=== PATIENT | male | born 1960 | race Caucasian/White ===

== ENCOUNTER 2016-12-29 13:52 | Inpatient (IN) ==
[2016-12-29] MEDS ORDERED: KETOROLAC 30 MG/1 ML VIAL IV STA (14:31)
[2016-12-29] MEDS ORDERED: METOPROLOL TARTRATE 5 MG/5 ML VIAL IV STA (14:31)
--- NOTE | 2016-12-29 14:36 | Emergency Department Note ---
Shady Sharpe Manpreet, am scribing for, and in the presence of, Yana Iniguez DO 14: 34. IHira Debra, DO, personally performed the services described in this documentation, ascribed by Tyrese Caruso in my presence, and it is both accurate and complete 435 . Arrival - Arrival Chief Complaint: Extremity Problem Stated Complaint: swollen foot and leg (left) ED Nursing Triage Note: pain and swelling to left ankle onset x 5 days - pt denies injury Mode of Arrival: Ambulatory Source: Patient - History of Present Illness HPI Narrative: Pt is a 56 y/o male who presents to the ED with CC of swollen left ankle since 5 days ago. Pt denies any recent falls or injuries, SOB, and fever. Pt does not have a regular PCP. No other pains/complaints reported to ED. denies any sob, chest pain , nausea or vomiting. no fever or chills. Onset (ago): day(s) Consistency: constant Severity: moderate Severity scale (1-10): 3 Allergies/Adverse Reactions: Allergies Allergy/AdvReac Type Severity Reaction Status Date / Time codeine Allergy ITCHING Verified 01/07/16 08:47 ondansetron Allergy Agitated Verified 01/07/16 08:44 [From Zofran (as hydrochloride)] Penicillins Allergy RASH Verified 01/07/16 08:47 Erythromycin Base AdvReac Abdominal Verified 01/07/16 08:47 Pain ketorolac [From Toradol] AdvReac Weakness Verified 01/07/16 08:47 NSAIDS (Non-Steroidal AdvReac Abdominal Verified 01/07/16 08:47 Anti-Inflamma Pain Home Medications: Home Medications Medication Instructions Recorded Confirmed Type Aspirin Tab 325 mg PO DAILY 12/29/16 12/29/16 History Review of System - Review of System 12 point system: reviewed and no additional remarkable complaints except as stated - Review of System Constitutional: Absent: chills, diaphoresis, fever Respiratory: Absent: cough, respiratory distress Cardiovascular: Absent: chest pain, dyspnea on exertion Gastrointestinal: Absent: abdominal pain, nausea Musculoskeletal: Present: leg pain (left ankle pain and swelling). Absent: back pain, neck pain Neurological: Absent: headache, weakness, numbness, paresthesias Medical,Surgical,& Family Hx - Medical History Cardio: History of: Cardiac Dysrhythmia (SVT), Hypertension No history of: [place] Psychological: History of: Anxiety Disorders, Depression No history of: Bipolar Disorder, Schizophrenia Neurology: History of: TIA No history of: Cerebrovascular Accident, Seizures HEENT: History of: Ear Problem (Decreased hearing left ear) Endocrine: No history of: Diabetes Mellitus (IDDM), Diabetes Mellitus (NIDDM) Respiratory: No history of: Asthma, Bronchitis, COPD Renal: No history of: Renal Problems Gastrointestinal: History of: Gastrointestinal Bleed, Liver Problems, Pancreatitis, GI Problems (gastric ulcers) Musculoskeletal: History of: Back/Neck Problems (chronic back pain), Degenerative Disk Disease (back surg x2) Other: History of: Cancer (Skin Melanoma) - Surgical History Abdominal Surgeries: Surgical HX of: Abdominal Surgery, Appendectomy, Cholecystectomy Orthopedic Surgeries: Surgical HX of;: Spinal Surgery (back surgery 2) - Family History Family History: Reports;: Family Cancer (Father, G'mother), Family Diabetes ( Father), Family Heart Disease - Social History Smoking Status: Current every day smoker Frequency of Alcohol Use: None Type of Drug Use: None Exam Vital Signs: Vital Signs Temperature 98.1 F 12/29/16 15:53 Pulse Rate 142 H 12/29/16 15:53 Respiratory Rate 20 12/29/16 15:53 Blood Pressure 140/100 12/29/16 15:53 O2 Sat by Pulse Oximetry 95 12/29/16 14:05 - General General appearance: alert, in no apparent distress - Head Head exam: Present: atraumatic, normocephalic, normal inspection - Eye Eye exam: Present: normal appearance, PERRL, EOMI - ENT ENT exam: Present: normal exam, normal oropharynx, mucous membranes moist, TM's normal bilaterally - Neck Neck exam: Present: normal inspection, full ROM, trachea midline. Absent: tenderness, thyromegaly - Chest Chest inspection: Present: normal inspection, symmetric chest wall rise. Absent : tenderness - Respiratory Respiratory exam: Present: normal lung sounds bilaterally. Absent: rales, respiratory distress - Cardiovascular Cardiovascular exam: Present: normal rhythm, tachycardia, normal heart sounds. Absent: regular rate, murmur, rubs, gallop - Abdominal Exam Abdominal exam: Present: soft, normal bowel sounds. Absent: distention, diminished bowel sounds - Extremities Exam Extremities exam: Absent: normal inspection, tenderness - Expanded Lower Left Lower Lower leg exam: Present: full ROM, swelling, other (+1 Pitting Edema). Absent: normal inspection - Back Exam Back exam: Present: normal inspection, full ROM. Absent: tenderness - Neurological Exam Neurological exam: Present: alert, oriented X3, CN II-XII intact, reflexes normal - Psychiatric Psychiatric exam: Present: normal affect, normal mood - Skin Skin exam: Present: warm, dry, intact, normal color. Absent: pallor Course Course Narrative: spoke with hospitalist who will admit pt. pt is stable at this time. Results - Labs CBC & BMP: 12/29/16 14:25 12/29/16 14:25 Lab Results: I have reviewed the patients labs Labs: Laboratory Tests 12/29/16 14:25 WBC 12.7 H RBC 4.80 Hgb 14.8 Hct 43.5 [place] % (Auto) 12.9 H [place] # (Auto) 1.6 H Laboratory Tests 12/29/16 14:25 Sodium 144 Potassium 3.8 Chloride 110 H Carbon Dioxide 25 BUN/Creatinine Ratio 8.00 Calcium 8.1 L Alkaline Phosphatase 290 H Total Protein 5.6 L Albumin 2.7 L Albumin/Globulin Ratio 0.9 L Laboratory Tests 12/29/16 12/29/16 14:25 14:25 INR 1.2 PT Patient/Control Mix 12.5 Circ Anticoag PTT 28.7 Total Creatine Kinase 177 CK-MB (CK-2) 3.8 H Troponin I < 0.015 - Diagnostic Findings Procedure: CT - chest: report reviewed by me (CT Chest PE study: 1. Acute pulmonary emboli as described. 2. Scattered 2 to 3 mm pleural-based nodular densities in both lungs are almost certainly benign. Prior granulomatous disease. 3. Prior abdominal surgery with Arsenio-en-Y and indwelling stent from the biliary system into the afferent limb. 4. Hepatic steatosis.) Disposition Clinical Impression: Deep vein thrombosis of lower extremity, Pulmonary embolism Case discussed with: patient Disposition: Still a Patient Condition: Stable Time of Disposition: 15:51
[2016-12-29] MEDS ORDERED: KETOROLAC 30 MG/1 ML VIAL ONE (14:40)
[2016-12-29] MEDS ORDERED: METOPROLOL TARTRATE 5 MG/5 ML VIAL IV ONE (14:40)
[2016-12-29 14:50] LABS: Basophils # 0.1 10*3/uL (0.0-0.2); Basophils % 0.7 % (0.0-0.8); Eosinophils # 0.6 10*3/uL (0.0-0.87); Eosinophils % 4.7 % (0.00-10.9); Hematocrit 43.5 VOL% (42.0-52.0); Hemoglobin 14.8 GM/DL (14.0-18.0); Immature Granulocytes Absolute 0.13 #; Lymphocytes # 2.8 10*3/uL (1.4-4.0); Mean Corpuscular Hemoglobin 31 PG (27-34); Mean Corpuscular Volume 90.6 FL (87-102); Mean Platelet Volume 10.5 FL (9.6-12.0); Monocytes # 1.6 10*3/uL (0.11-0.8); Monocytes % 12.9 % (1.7-12.7); Neutrophils # 7.4 10*3/uL (1.4-7.4); Neutrophils % 58.7 % (38.7-73.9); Platelet Count 284 T/CUMM (130-400); Red Cell Distribution Width 15.2 % (9.3-17.3); White Blood Count 12.7 T/CUMM (4-12)
[2016-12-29 15:11] LABS: Alanine Aminotransferase 41 U/L (16-61); Albumin 2.7 G/DL (3.4-5.0); Alkaline Phosphatase 290 U/L (45-117); Aspartate Amino Transferase 35 U/L (0-37); Bilirubin,Total < 0.39 MG/DL (0.2-1.0); Blood Urea Nitrogen 8 MG/DL (7-18); Calcium 8.1 MG/DL (8.5-10.1); Glucose 98 MG/DL (74-106); Osmolality,Calculated 283.8 MOS/KG (273-304); Potassium 3.8 MMOL/L (3.5-5.1); Sodium 144 MMOL/L (136-145); Total Protein 5.6 G/DL (6.4-8.3)
--- NOTE | 2016-12-29 15:12 | Ultrasound Report ---
History: Left lower extremity swelling and pain Date: 12/29/2016 Study: Left lower extremity color-flow venous Doppler study Comparison exam: No previous Color Doppler, wave form analysis, and compression analysis of the deep veins of the left lower extremity from the common femoral vein level through the popliteal vein level was performed. There is occluding echogenic material of a noncompressible nature in the distal left superficial femoral vein and left popliteal vein compatible with acute DVT. Preliminary verbal report was given to nurse Puente in the emergency room at 3:06 PM. Critical test result. Ultrasound images were captured and archived Impression: Acute DVT left lower extremity PROCEDURE INTERPRETED AT [facility] DEPARTMENT OF RADIOLOGY Final Report Signed by: Dr. Chiquis Hess
[2016-12-29 15:25] LABS: INR 1.2; PT Patient Result 12.5 SECS; Partial Thromboplastin Time 28.7 SECS (0-40)
[2016-12-29 15:32] LABS: Troponin I Only < 0.015 NG/ML (0.00-0.045)
--- NOTE | 2016-12-29 15:41 | CT Report ---
CT chest PE study Indication: Dyspnea. Tachycardia. CT CHEST WITH CONTRAST, PE PROTOCOL DLP: 303 mGy*cm. One or more of the following dose reduction techniques was used: Automated exposure control, adjustment of the mA and/or kV according the patient size, or use of iterative reconstruction techniques. Comparison: 01/05/2016 Technique: Axial CT images of the chest were obtained during the pulmonary arterial phase of contrast injection. Coronal reconstructions were provided. Omnipaque 350, 80 cc. Findings: Filling defects are present within the branch points of the right main pulmonary artery, right middle lobe and right lower lobar branches, left main pulmonary artery and both left upper and left lower lobe segments. Main pulmonary artery is clear centrally. Main pulmonary artery is normal in size. Heart size is normal. RV/LV diameter ratio 0.8. Coronary artery calcifications are present. Aortic arch is unremarkable without dissection or aneurysm. No mediastinal, axillary or hilar lymphadenopathy. Calcified granuloma right lung base laterally. There are innumerable pleural-based nodular densities, most 2 to 3 mm diameter bilaterally. These are almost certainly benign. No confluent mass, soft tissue pulmonary nodule or infiltrate is shown. Pleural spaces are clear. No destructive bone lesions. Views of the upper abdomen show diffusely hypodense liver parenchyma and pneumobilia and a indwelling biliary catheter extending into what appears to be the afferent limb of a prior Arsenio-en-Y. Surgical jocelyn are present at the stomach and the first segment of the duodenum is absent. Impression: 1. Acute pulmonary emboli as described. 2. Scattered 2 to 3 mm pleural-based nodular densities in both lungs are almost certainly benign. Prior granulomatous disease. 3. Prior abdominal surgery with Arsenio-en-Y and indwelling stent from the biliary system into the afferent limb. 4. Hepatic steatosis. Comment: Critical test result discussed with Dr. Iniguez today at 1535 hours. PROCEDURE INTERPRETED AT [facility] DEPARTMENT OF RADIOLOGY Final Report Signed by: Law Cavanaugh M.D.
[2016-12-29] MEDS ORDERED: ENOXAPARIN 80 MG/0.8 ML SYRINGE SUBCUT STA (15:42)
--- NOTE | 2016-12-29 15:43 | XRay Report ---
History: Shortness of breath Date: 12/29/2016 Study: Chest x-ray AP portable Comparison exam: January 10, 2016 The cardiac silhouette is not enlarged. There is no mediastinal mass. The pulmonary vasculature is upper normal. There is no pleural effusion. The lungs are well-expanded. There is no confluent infiltrate. There is no gross pleural effusion. Osseous structures are unchanged. Impression: No definite acute process PROCEDURE INTERPRETED AT [facility] DEPARTMENT OF RADIOLOGY Final Report Signed by: Dr. Chiquis Hess
[2016-12-29] MEDS ORDERED: ENOXAPARIN 80 MG/0.8 ML SYRINGE SUBCUT ONE (15:44)
[2016-12-29] MEDS ORDERED: SODIUM CHLORIDE 0.9% 500 ML IV STA (17:09)
--- NOTE | 2016-12-29 18:08 | Hospitalist History & Physical ---
Assessment and Plan (1) Pulmonary embolism Status: Acute Assessment and plan: Admit to telemetry. Cardiac monitoring. Supplemental O2 as needed. Start patient on Eliquis. Check labs in am (BMP/CBC, PT/INR) Current Visit: Yes (2) Hypertension Status: Acute Assessment and plan: pt hypertensive. Order prn antihypertensive agents and continue to monitor. Current Visit: No (3) Chronic back pain Status: Chronic Current Visit: No (4) Chronic pain syndrome Problem details: The patient with multiple pain complaints were decades Status : Chronic Current Visit: No (5) History of pancreatitis Status: Chronic Current Visit: No History of Present Illness Chief complaint: swollen left foot/leg History of present illness: Mr. Aguilar is a 56 year old white male with a history of htn, TIA, GI bleeding, pancreatitis, degenerative disk disease, and skin cancer that presented to the ED for complaints of a swollen left ankle. Pt. states that he has been experiencing pain to the left ankle for the last 5 days, but it worsened overnight and was accompanied by calf pain. Pt. denies any recent injury or trauma to the leg. Pt. uses a cane to ambulate and states that he has had difficulty over the last couple of days ambulating. Pt. denies chest pain but complains of some shortness of breath at rest and with exertion. Pt. did report some mild nausea and fever but no vomiting and chills. On examination in the ED , pt was found to be hypertensive and tachycardiac. Pt's left leg is edematous and warm to touch. Pt had a CT performed which revealed an acute pulmonary emboli. Pt was given 80 mg of Lovenox in the ED. Pt will be admitted to the hospitalist service for further evaluation and treatment. Home Medications Medication Instructions Recorded Confirmed Type Aspirin Tab 325 mg PO DAILY 12/29/16 12/29/16 History Allergies Allergy/AdvReac Type Severity Reaction Status Date / Time codeine Allergy ITCHING Verified 01/07/16 08:47 ondansetron Allergy Agitated Verified 01/07/16 08:44 [From Zofran (as hydrochloride)] Penicillins Allergy RASH Verified 01/07/16 08:47 Erythromycin Base AdvReac Abdominal Verified 01/07/16 08:47 Pain ketorolac [From Toradol] AdvReac Weakness Verified 12/29/16 16:06 NSAIDS (Non-Steroidal AdvReac Abdominal Verified 01/07/16 08:47 Anti-Inflamma Pain Medical,Surgical,& Family Hx - Medical History Cardio: History of: Cardiac Dysrhythmia (SVT), Hypertension No history of: [place] Psychological: History of: Anxiety Disorders, Depression No history of: Bipolar Disorder, Schizophrenia Neurology: History of: TIA No history of: Cerebrovascular Accident, Seizures HEENT: History of: Ear Problem (Decreased hearing left ear) Endocrine: No history of: Diabetes Mellitus (IDDM), Diabetes Mellitus (NIDDM) Respiratory: No history of: Asthma, Bronchitis, COPD Renal: No history of: Renal Problems Gastrointestinal: History of: Gastrointestinal Bleed, Liver Problems, Pancreatitis, GI Problems (gastric ulcers) Musculoskeletal: History of: Back/Neck Problems (chronic back pain), Degenerative Disk Disease (back surg x2) Other: History of: Cancer (Skin Melanoma) - Surgical History Abdominal Surgeries: Surgical HX of: Abdominal Surgery, Appendectomy, Cholecystectomy Orthopedic Surgeries: Surgical HX of;: Spinal Surgery (back surgery 2) - Family History Family History: Reports;: Family Cancer (Father, G'mother), Family Diabetes ( Father), Family Heart Disease - Social History Smoking Status: Current every day smoker Have you smoked in the last 12 months: Yes Frequency of Alcohol Use: None Type of Drug Use: None Marital Status: Single Lives With:: Alone Functional capacity: uses cane/walker - Constitutional Constitutional: Present: fever(s), weakness. Absent: chills - EENT Eyes: Absent: blurry vision Ears: Absent: decreased hearing Nose, mouth and throat: Absent: dysphagia, headache(s) - Cardiovascular Cardiovascular: Present: dyspnea on exertion, edema. Absent: chest pain at rest - Respiratory Respiratory: Present: dyspnea on exertion. Absent: wheezing - Gastrointestinal Gastrointestinal: Present: nausea. Absent: abdominal pain, vomiting - Genitourinary Genitourinary: Absent: difficulty urinating, hematuria - Musculoskeletal Musculoskeletal: Present: back pain - Neurological Neurological: Absent: confusion, dizziness - Hematologic/Lymphatic Hematologic/Lymphatic: Present: easy bruising Exam - Constitutional Vitals: Period Temp Pulse Resp BP Sys/Victor Pulse Ox Last 24 Hr 98.1 F-98.1 F 142-142 20-20 140-140/100-100 95 General appearance: normal weight, no acute distress - Head Head exam: Present: normal inspection, atraumatic - Eye Eye exam: Present: EOMI. Absent: scleral icterus Pupils: Present: ADEEL. Absent: fixed - Respiratory Respiratory exam: Present: other (coarse) - Cardiovascular Cardiovascular exam: Present: tachycardia. Absent: JVD - GI/Abdominal GI/Abdominal exam: Present: normal bowel sounds, soft. Absent: tenderness - Extremities Exam Extremities exam: Present: normal capillary refill, calf tenderness (left leg), edema - Expanded Left Lower Knee exam: Present: normal inspection Lower leg exam: Present: swelling, tenderness Foot/Toe exam: Present: full ROM, swelling, tenderness - Neurological Exam Neurological exam: Present: alert, oriented X3 - Psychiatric Psychiatric exam: Present: normal affect, normal mood - Skin Skin exam: Present: normal color, warm, dry Results - Labs CBC & BMP: 12/29/16 14:25 12/29/16 14:25 Lab Results: I have reviewed the past 24 hour labs
--- NOTE | 2016-12-29 18:59 | EKG Report ---
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
[2016-12-29] MEDS: SODIUM CHLORIDE 0.9% 1,000 ML IV SCH (19:12)
[2016-12-29] MEDS ORDERED: ACETAMINOPHEN 325 MG TABLET PO PRN (19:12)
[2016-12-29] MEDS: METOPROLOL TARTRATE 5 MG/5 ML VIAL IV SCH (21:54)
[2016-12-29] MEDS: RIVAROXABAN 15 MG TABLET PO SCH (21:55)
[2016-12-30 01:13] LABS: Apearance,Urine CLEAR (Clear); Bilirubin,Urine Negative (Negative); Blood, Urine Negative (Negative); Glucose,Urine (UA) Negative (Negative); Ketones,Urine 5 mg/dL (Negative); Mucus,Urine Occasional /LPF (Occasional); Nitrite,Urine Negative (Negative); Protein,Urine Negative; RBC,Urine <1 /HPF (0-4); Urine Color Yellow (Yellow); Urine Specific Gravity 1.043 (1.001-1.035); Urine Urobilinogen < 2.0 EU/DL (0.2-1.0); WBC,Urine <1 /HPF (0-6)
[2016-12-30 01:19] LABS: Barbiturates Screen,Urine Negative (Negative); Benzodiazepines Screen,Urine Positive (Negative); Cannabinoid Screen,Urine Negative (Negative); Opiate Screen,Urine Negative (Negative); Phencyclidine Screen,Urine Negative (Negative)
[2016-12-30] MEDS: SODIUM CHLORIDE 0.9% 1,000 ML IV SCH ×2 (02:20→02:32)
[2016-12-30] MEDS: METOPROLOL TARTRATE 5 MG/5 ML VIAL IV SCH ×3 (02:30→14:31)
[2016-12-30 06:16] LABS: Basophils # 0.1 10*3/uL (0.0-0.2); Basophils % 1.1 % (0.0-0.8); Eosinophils # 1.1 10*3/uL (0.0-0.87); Eosinophils % 10.9 % (0.00-10.9); Hematocrit 38.3 VOL% (42.0-52.0); Hemoglobin 12.9 GM/DL (14.0-18.0); Immature Granulocytes % 0.8 %; Immature Granulocytes Absolute 0.08 #; Lymphocytes % 29.9 % (21.2-54.2); Mean Corpuscular HGB Conc 33.7 GM/DL (32-36); Mean Corpuscular Hemoglobin 31 PG (27-34); Mean Corpuscular Volume 91.4 FL (87-102); Mean Platelet Volume 10.4 FL (9.6-12.0); Monocytes # 1.2 10*3/uL (0.11-0.8); Monocytes % 11.7 % (1.7-12.7); Neutrophils # 4.6 10*3/uL (1.4-7.4); Neutrophils % 45.6 % (38.7-73.9); Platelet Count 259 T/CUMM (130-400); Red Blood Count 4.19 MC/CUMM (3.8-5.5); Red Cell Distribution Width 15.6 % (9.3-17.3); White Blood Count 10.1 T/CUMM (4-12)
[2016-12-30 06:22] LABS: INR 1.5; PT Patient Result 16.7 SECS
[2016-12-30 06:39] LABS: Calcium 7.6 MG/DL (8.5-10.1); Osmolality,Calculated 285.6 MOS/KG (273-304); Risk Ratio 3.38; Thyroid Stimulating Hormone 0.583 uIU/ml (0.358-3.74); VLDL CHOLESTEROL 11.6 MG/DL
[2016-12-30] MEDS ORDERED: ENOXAPARIN 100 MG/ML SYRINGE SUBCUT SCH (09:00)
[2016-12-30] MEDS ORDERED: PANTOPRAZOLE 40 MG TABLET PO SCH (09:00)
[2016-12-30] MEDS: RIVAROXABAN 15 MG TABLET PO SCH (10:18)
--- NOTE | 2016-12-30 11:05 | Discharge Summary ---
Hospital Course - Hospital Course Hospital Course: This hospitalization included patient admitted due to pulmonary embolus found after a 5 day history of left leg swelling and pain. On evaluation in the emergency room, the CT scan showed evidence of acute pulmonary embolus. He was started on full dose Lovenox. Moreover, the patient transitioned to Xarelto. During this hospitalization he had no further leg pain. Within 24 hours the left leg swelling was completely resolved. No fevers or chills. No shortness of breath or chest pain. He is now been transitioned to Xarelto. He has been hemodynamically stable. No other acute changes. He is now prepared for discharge will follow up with Dr. Mix as his primary provider. - Time spent with patient Time with patient DS: Greater than 30 minutes (35 minutes due to extent of discharge instructions.) Diagnosis - Discharge Diagnosis (1) DVT (deep venous thrombosis) Status: Acute (2) Hypertension Status: Chronic (3) Deep vein thrombosis of lower extremity Status: Acute (4) Pulmonary embolism Status: Acute Discharge Plan - Discharge Data Disposition: Disch To Home/Self Care Condition at Discharge: Stable Discharge Diet: advance to your usual diet Activity: resume usual activities as tolerated Hygiene: no restrictions Weight Bearing at Discharge: full weight bearing Driving: no restrictions Contact your physician if you experience:: fever over 101, Shortness of breath, Bleeding - Discharge Medications New RX: Metoprolol Succinate Xl [Toprol Xl] 25 mg PO DAILY #30 tablet RX: Pantoprazole Tab [Protonix Tab] 40 mg PO DAILY #30 tablet RX: Rivaroxaban [Xarelto] 15 mg PO BID W/MEALS #42 tablet Rivaroxaban [Xarelto] 20 mg PO DAILY W/BREAKFAST #30 tablet - Follow Up or Referral - Forms/Instructions Additional Discharge Instructions: Follow with Dr. Mele Mix as scheduled. Continue Xarelto as prescribed for pulmonary embolus. Exam - Constitutional Vitals: Period Temp Pulse Resp BP Sys/Victor Pulse Ox Last 24 Hr 97 F-98.7 F 82-142 18-20 128-166/82-102 92-95 General appearance: normal weight - Head Head exam: Present: normal inspection - Eye Eye exam: Present: EOMI - ENT ENT exam: Present: normal exam - Neck Neck exam: Present: normal inspection - Respiratory Respiratory exam: Present: clear to auscultation bilaterally - Cardiovascular Cardiovascular exam: Present: regular rate and rhythm - GI/Abdominal GI/Abdominal exam: Present: normal bowel sounds - Extremities Exam Extremities exam: Present: normal inspection - Back Exam Back exam: Present: normal inspection - Neurological Exam Neurological exam: Present: alert, oriented X3, CN II-XII intact - Psychiatric Psychiatric exam: Present: normal affect, normal mood - Skin Skin exam: Present: normal color, dry Discharge Results Procedures and tests throughout hospitalization: Pending Orders 12/31/16 04:00 Basic Metabolic Panel IN AM Comp Blood Count Auto Diff IN AM Labs on day of discharge: Labs from last 24 hours 12/30/16 12/30/16 12/30/16 05:44 05:42 05:42 WBC RBC Hgb Hct MCV MCH MCHC RDW Plt Count MPV Neut % (Auto) Lymph % (Auto) [place] % (Auto) Eos % (Auto) Baso % (Auto) Neut # (Auto) Lymph # (Auto) [place] # (Auto) Eos # (Auto) Baso # (Auto) Immature Gran % Nucleated RBC % Immature Gran # Nucleated RBCs # INR 1.5 PT Patient/Control Mix 16.7 D Circ Anticoag PTT Sodium Potassium Chloride Carbon Dioxide Anion Gap BUN Creatinine GFR Calculation BUN/Creatinine Ratio Glucose Hemoglobin A1c 4.6 Calculated Osmolality Calcium Total Bilirubin AST ALT Alkaline Phosphatase Total Creatine Kinase CK-MB (CK-2) Troponin I B-Natriuretic Peptide Total Protein Albumin Globulin Albumin/Globulin Ratio Triglycerides Cholesterol LDL Cholesterol VLDL Cholesterol HDL Cholesterol Heart Disease Risk Ratio Free T4 1.19 TSH 3rd Generation Urine Color Urine Appearance Urine pH Ur Specific [place] Urine Protein Urine Glucose (UA) Urine Ketones Urine Blood Urine Nitrate Urine Bilirubin Urine Urobilinogen Urine Leukocytes Urine RBC Urine WBC Urine Mucus Ur Culture Indicated? Urine Opiates Screen Ur Barbiturates Screen Ur Phencyclidine Scrn U Amphetamine/Methamph U Benzodiazepines Scrn U Cocaine Metab Screen U Cannabinoids Screen 12/30/16 12/30/16 12/30/16 05:42 05:42 00:30 WBC 10.1 RBC 4.19 Hgb 12.9 L Hct 38.3 L MCV 91.4 MCH 31 MCHC 33.7 RDW 15.6 Plt Count 259 MPV 10.4 Neut % (Auto) 45.6 Lymph % (Auto) 29.9 [place] % (Auto) 11.7 Eos % (Auto) 10.9 Baso % (Auto) 1.1 H Neut # (Auto) 4.6 Lymph # (Auto) 3.0 [place] # (Auto) 1.2 H Eos # (Auto) 1.1 H Baso # (Auto) 0.1 Immature Gran % 0.8 Nucleated RBC % 0.0 Immature Gran # 0.08 Nucleated RBCs # 0.00 INR PT Patient/Control Mix Circ Anticoag PTT Sodium 146 H Potassium 4.0 Chloride 111 H Carbon Dioxide 28 Anion Gap 11.0 BUN 7 Creatinine 0.60 L GFR Calculation 127 BUN/Creatinine Ratio 11.00 Glucose 60 L Hemoglobin A1c Calculated Osmolality 285.6 Calcium 7.6 L Total Bilirubin AST ALT Alkaline Phosphatase Total Creatine Kinase CK-MB (CK-2) Troponin I B-Natriuretic Peptide Total Protein Albumin Globulin Albumin/Globulin Ratio Triglycerides 58 Cholesterol 54 LDL Cholesterol 35.0 VLDL Cholesterol 11.6 HDL Cholesterol 16 L Heart Disease Risk Ratio 3.38 Free T4 TSH 3rd Generation 0.583 Urine Color Urine Appearance Urine pH Ur Specific [place] Urine Protein Urine Glucose (UA) Urine Ketones Urine Blood Urine Nitrate Urine Bilirubin Urine Urobilinogen Urine Leukocytes Urine RBC Urine WBC Urine Mucus Ur Culture Indicated? Urine Opiates Screen Negative Ur Barbiturates Screen Negative Ur Phencyclidine Scrn Negative U Amphetamine/Methamph Negative U Benzodiazepines Scrn Positive H U Cocaine Metab Screen Negative U Cannabinoids Screen Negative 12/30/16 12/29/16 12/29/16 00:30 14:25 14:25 WBC RBC Hgb Hct MCV MCH MCHC RDW Plt Count MPV Neut % (Auto) Lymph % (Auto) [place] % (Auto) Eos % (Auto) Baso % (Auto) Neut # (Auto) Lymph # (Auto) [place] # (Auto) Eos # (Auto) Baso # (Auto) Immature Gran % Nucleated RBC % Immature Gran # Nucleated RBCs # INR PT Patient/Control Mix Circ Anticoag PTT Sodium Potassium Chloride Carbon Dioxide Anion Gap BUN Creatinine GFR Calculation BUN/Creatinine Ratio Glucose Hemoglobin A1c Calculated Osmolality Calcium Total Bilirubin AST ALT Alkaline Phosphatase Total Creatine Kinase 177 CK-MB (CK-2) 3.8 H Troponin I < 0.015 B-Natriuretic Peptide 8 Total Protein Albumin Globulin Albumin/Globulin Ratio Triglycerides Cholesterol LDL Cholesterol VLDL Cholesterol HDL Cholesterol Heart Disease Risk Ratio Free T4 TSH 3rd Generation Urine Color Yellow Urine Appearance Clear Urine pH 6.0 Ur Specific [place] 1.043 H Urine Protein Negative Urine Glucose (UA) Negative Urine Ketones 5 Urine Blood Negative Urine Nitrate Negative Urine Bilirubin Negative Urine Urobilinogen < 2.0 H Urine Leukocytes Negative Urine RBC <1 Urine WBC <1 Urine Mucus Occasional Ur Culture Indicated? Not indicated Urine Opiates Screen Ur Barbiturates Screen Ur Phencyclidine Scrn U Amphetamine/Methamph U Benzodiazepines Scrn U Cocaine Metab Screen U Cannabinoids Screen 12/29/16 12/29/16 12/29/16 14:25 14:25 14:25 WBC 12.7 H RBC 4.80 Hgb 14.8 Hct 43.5 MCV 90.6 MCH 31 MCHC 34.0 RDW 15.2 Plt Count 284 MPV 10.5 Neut % (Auto) 58.7 Lymph % (Auto) 22.0 [place] % (Auto) 12.9 H Eos % (Auto) 4.7 Baso % (Auto) 0.7 Neut # (Auto) 7.4 Lymph # (Auto) 2.8 [place] # (Auto) 1.6 H Eos # (Auto) 0.6 Baso # (Auto) 0.1 Immature Gran % 1.0 Nucleated RBC % 0.0 Immature Gran # 0.13 Nucleated RBCs # 0.00 INR 1.2 PT Patient/Control Mix 12.5 Circ Anticoag PTT 28.7 Sodium 144 Potassium 3.8 Chloride 110 H Carbon Dioxide 25 Anion Gap 12.8 BUN 8 Creatinine 0.90 GFR Calculation 106 BUN/Creatinine Ratio 8.00 Glucose 98 Hemoglobin A1c Calculated Osmolality 283.8 Calcium 8.1 L Total Bilirubin < 0.39 AST 35 ALT 41 Alkaline Phosphatase 290 H Total Creatine Kinase CK-MB (CK-2) Troponin I B-Natriuretic Peptide Total Protein 5.6 L Albumin 2.7 L Globulin 2.9 Albumin/Globulin Ratio 0.9 L Triglycerides Cholesterol LDL Cholesterol VLDL Cholesterol HDL Cholesterol Heart Disease Risk Ratio Free T4 TSH 3rd Generation Urine Color Urine Appearance Urine pH Ur Specific [place] Urine Protein Urine Glucose (UA) Urine Ketones Urine Blood Urine Nitrate Urine Bilirubin Urine Urobilinogen Urine Leukocytes Urine RBC Urine WBC Urine Mucus Ur Culture Indicated? Urine Opiates Screen Ur Barbiturates Screen Ur Phencyclidine Scrn U Amphetamine/Methamph U Benzodiazepines Scrn U Cocaine Metab Screen U Cannabinoids Screen DS: Provider Date of admission: 12/29/16 16:09 Primary care physician: . No PCP Attending physician on admission: Pascual Boone Jr., MD Consults: 12/29/16 19:12 Consult to Case Mgmt/Social Srvs [CONS] Routine Reason for Case Mgmt/Social Srvs: Other Consult Comment: help finding PCP in his area Discharging clinician: Pascual Boone Jr., MD
[2016-12-30 12:32] VITALS: BP 173/104
[2016-12-30] MEDS ORDERED: hydrALAZINE 20 MG/1 ML VIAL IV PRN (12:33)
[2016-12-30] MEDS ORDERED: METOPROLOL SUCCINATE XL 50 MG TABLET PO SCH (13:00)
== END 2016-12-30 15:28 | disposition home or self-care (01) | DRG 134 ==
LOC: N.ED 13:52 → N.EDINP 16:09 → N.TELEN 18:22 → UNDODISIN 12-30 14:27
PROVIDERS: ADMIT Internal Medicine Nephrology; ATTEND Internal Medicine Nephrology

== ENCOUNTER 2017-07-01 09:21 | Inpatient (IN) ==
[2017-07-01] MEDS ORDERED: ONDANSETRON 4 MG/2 ML VIAL ONE (09:42)
[2017-07-01] MEDS ORDERED: DILTIAZEM 100 MG VIAL.ADD IV ONE ×2 (09:43→18:29)
[2017-07-01] MEDS ORDERED: SODIUM CHLORIDE 0.9% 2,000 ML IV STA (09:44)
[2017-07-01 10:16] LABS: Basophils # 0.1 10*3/uL (0.0-0.2); Basophils % 0.7 % (0.0-0.8); Eosinophils % 0.1 % (0.00-10.9); Hematocrit 50.9 VOL% (42.0-52.0); Hemoglobin 16.7 GM/DL (14.0-18.0); Immature Granulocytes % 1.3 %; Immature Granulocytes Absolute 0.09 #; Lymphocytes # 1.6 10*3/uL (1.4-4.0); Lymphocytes % 22.5 % (21.2-54.2); Mean Corpuscular HGB Conc 32.8 GM/DL (32-36); Mean Corpuscular Hemoglobin 31 PG (27-34); Mean Corpuscular Volume 95.5 FL (87-102); Mean Platelet Volume 10.5 FL (9.6-12.0); Monocytes # 0.9 10*3/uL (0.11-0.8); Monocytes % 13.3 % (1.7-12.7); Neutrophils # 4.4 10*3/uL (1.4-7.4); Neutrophils % 62.1 % (38.7-73.9); Platelet Count 299 T/CUMM (130-400); Red Blood Count 5.33 MC/CUMM (3.8-5.5); Red Cell Distribution Width 15.7 % (9.3-17.3); White Blood Count 7.1 T/CUMM (4-12)
[2017-07-01 10:52] LABS: Alanine Aminotransferase 67 U/L (16-61); Albumin 2.4 G/DL (3.4-5.0); Alkaline Phosphatase 231 U/L (45-117); Amylase 14 U/L (25-115); Aspartate Amino Transferase 102 U/L (0-37); Bilirubin,Total < 0.39 MG/DL (0.2-1.0); Blood Urea Nitrogen 17 MG/DL (7-18); Calcium 7.5 MG/DL (8.5-10.1); Glucose 95 MG/DL (74-106); Magnesium 1.8 MG/DL (1.8-2.4); Potassium 4.1 MMOL/L (3.5-5.1); Sodium 136 MMOL/L (136-145); Total Protein 5.8 G/DL (6.4-8.3); Troponin I Only 0.018 NG/ML (0.00-0.045)
[2017-07-01 11:11] LABS: Lactic Acid 3.4 MMOL/L (0.4-2.0)
[2017-07-01] MEDS ORDERED: DILTIAZEM 50 MG/10 ML VIAL IV STA (11:14)
[2017-07-01] MEDS ORDERED: ONDANSETRON 4 MG/2 ML VIAL IV STA (11:15)
[2017-07-01] MEDS: DILTIAZEM INJ 100 MG in SODIUM CHLORIDE 0.9% 100 ML IV SCH (11:18)
[2017-07-01] MEDS ORDERED: METOPROLOL TARTRATE 5 MG/5 ML VIAL IV ONE (13:56)
[2017-07-01] MEDS ORDERED: PROMETHAZINE 25 MG/1 ML VIAL ONE (14:10)
[2017-07-01] MEDS ORDERED: MORPHINE 2 MG/1 ML SYRINGE ONE ×2 (14:10→14:13)
[2017-07-01] MEDS ORDERED: METOPROLOL TARTRATE 5 MG/5 ML VIAL IV STA (14:23)
[2017-07-01] MEDS ORDERED: MORPHINE 2 MG/1 ML SYRINGE IV STA (14:23)
[2017-07-01] MEDS ORDERED: PROMETHAZINE 25 MG/1 ML VIAL IM STA (14:25)
[2017-07-01] MEDS: METOPROLOL TARTRATE 25 MG TABLET PO SCH (20:48)
[2017-07-01] MEDS: ACETAMINOPHEN 325 MG TABLET PO PRN (20:48)
[2017-07-01] MEDS: SODIUM CHLORIDE 0.9% 1,000 ML IV SCH (20:51)
[2017-07-01] MEDS: PROMETHAZINE 25 MG/1 ML VIAL IM PRN (23:52)
[2017-07-01] MEDS: MORPHINE 2 MG/1 ML SYRINGE IV PRN (23:53)
[2017-07-02] MEDS: PROMETHAZINE 25 MG/1 ML VIAL IM PRN (05:36)
[2017-07-02] MEDS: MORPHINE 2 MG/1 ML SYRINGE IV PRN (05:36)
[2017-07-02] MEDS: DILTIAZEM INJ 100 MG in SODIUM CHLORIDE 0.9% 100 ML IV SCH ×2 (05:45→17:56)
[2017-07-02 05:53] LABS: Basophils % 0.8 % (0.0-0.8); Eosinophils % 0.4 % (0.00-10.9); Hematocrit 39.1 VOL% (42.0-52.0); Hemoglobin 12.8 GM/DL (14.0-18.0); Immature Granulocytes % 1.3 %; Immature Granulocytes Absolute 0.07 #; Lymphocytes # 2.1 10*3/uL (1.4-4.0); Lymphocytes % 38.8 % (21.2-54.2); Mean Corpuscular HGB Conc 32.7 GM/DL (32-36); Mean Corpuscular Hemoglobin 31 PG (27-34); Mean Corpuscular Volume 95.6 FL (87-102); Mean Platelet Volume 10.5 FL (9.6-12.0); Monocytes # 0.6 10*3/uL (0.11-0.8); Monocytes % 10.4 % (1.7-12.7); Neutrophils # 2.6 10*3/uL (1.4-7.4); Neutrophils % 48.3 % (38.7-73.9); Platelet Count 172 T/CUMM (130-400); Red Blood Count 4.09 MC/CUMM (3.8-5.5); Red Cell Distribution Width 15.9 % (9.3-17.3); White Blood Count 5.3 T/CUMM (4-12)
[2017-07-02 06:22] LABS: Albumin 1.7 G/DL (3.4-5.0); Bilirubin,Direct 0.13 MG/DL (0.0-0.20); Bilirubin,Indirect 0.4 MG/DL (0.0-1.0); Bilirubin,Total 0.5 MG/DL (0.2-1.0); Total Protein 3.8 G/DL (6.4-8.3)
[2017-07-02] MEDS: SODIUM CHLORIDE 0.9% 1,000 ML IV SCH ×2 (06:35→20:57)
[2017-07-02 06:37] LABS: Anisocytosis 1+; Band Neutrophils 5 % (0-10); Lymphocytes 27 % (20-55); Myelocytes 1 %; Platelet Estimate Normal; Segmented Neutrophils 62 % (50-85); Total Cells Counted 100
[2017-07-02 06:42] LABS: Calcium 6.8 MG/DL (8.5-10.1); Osmolality,Calculated 272.7 MOS/KG (273-304); Potassium 3.8 MMOL/L (3.5-5.1)
[2017-07-02] MEDS: PANTOPRAZOLE 40 MG TABLET PO SCH (08:28)
[2017-07-02] MEDS: METOPROLOL TARTRATE 25 MG TABLET PO SCH ×2 (08:28→20:57)
[2017-07-02] MEDS ORDERED: METOPROLOL TARTRATE 25 MG TABLET PO SCH (09:00)
[2017-07-02] MEDS: LEVOFLOXACIN INJ 750 MG in PREMIX 1 EACH IV SCH (15:57)
[2017-07-02] MEDS: metroNIDAZOLE INJ 500 MG in PREMIX 1 EACH IV SCH ×2 (17:54→23:49)
[2017-07-03 05:20] LABS: Basophils % 0.5 % (0.0-0.8); Hematocrit 34.8 VOL% (42.0-52.0); Hemoglobin 11.9 GM/DL (14.0-18.0); Immature Granulocytes % 1.6 %; Immature Granulocytes Absolute 0.06 #; Lymphocytes # 1.7 10*3/uL (1.4-4.0); Lymphocytes % 44.1 % (21.2-54.2); Mean Corpuscular HGB Conc 34.2 GM/DL (32-36); Mean Corpuscular Hemoglobin 32 PG (27-34); Mean Corpuscular Volume 92.6 FL (87-102); Mean Platelet Volume 10.9 FL (9.6-12.0); Monocytes # 0.4 10*3/uL (0.11-0.8); Monocytes % 9.9 % (1.7-12.7); Neutrophils # 1.6 10*3/uL (1.4-7.4); Neutrophils % 42.9 % (38.7-73.9); Platelet Count 145 T/CUMM (130-400); Red Blood Count 3.76 MC/CUMM (3.8-5.5); Red Cell Distribution Width 15.7 % (9.3-17.3); White Blood Count 3.8 T/CUMM (4-12)
[2017-07-03 05:45] LABS: Calcium 6.1 MG/DL (8.5-10.1); Osmolality,Calculated 275.4 MOS/KG (273-304); Potassium 3.7 MMOL/L (3.5-5.1)
[2017-07-03 05:54] LABS: Band Neutrophils 1 % (0-10); Giant Platelets Few; Hypochromasia 1+; Lymphocytes 31 % (20-55); Platelet Estimate Normal; Segmented Neutrophils 60 % (50-85); Total Cells Counted 100
[2017-07-03] MEDS: metroNIDAZOLE INJ 500 MG in PREMIX 1 EACH IV SCH ×3 (06:17→22:38)
[2017-07-03] MEDS: PROMETHAZINE 25 MG/1 ML VIAL IM PRN ×2 (09:55→22:38)
[2017-07-03] MEDS: RIVAROXABAN 20 MG TABLET PO SCH (09:57)
[2017-07-03] MEDS: PANTOPRAZOLE 40 MG TABLET PO SCH (09:58)
[2017-07-03] MEDS: METOPROLOL SUCCINATE XL 50 MG TABLET PO SCH (09:58)
[2017-07-03] MEDS: METOPROLOL TARTRATE 25 MG TABLET PO SCH (09:58)
[2017-07-03] MEDS ORDERED: ALPRAZolam 0.5 MG TABLET PO ONE (10:21)
[2017-07-03] MEDS: DILTIAZEM INJ 100 MG in SODIUM CHLORIDE 0.9% 100 ML IV SCH (11:35)
[2017-07-03] MEDS: MORPHINE 2 MG/1 ML SYRINGE IV PRN ×2 (11:37→20:00)
[2017-07-03] MEDS: LEVOFLOXACIN INJ 750 MG in PREMIX 1 EACH IV SCH (15:28)
[2017-07-03] MEDS: SODIUM CHLORIDE 0.9% 1,000 ML IV SCH ×2 (22:39→22:41)
[2017-07-03 23:31] LABS: Apearance,Urine CLEAR (Clear); Bilirubin,Urine Negative (Negative); Blood, Urine Negative (Negative); Glucose,Urine (UA) Negative (Negative); Ketones,Urine 20 mg/dL (Negative); Mucus,Urine Occasional /LPF (Occasional); Nitrite,Urine Negative (Negative); Protein,Urine Negative; RBC,Urine <1 /HPF (0-4); Urine Color Yellow (Yellow); Urine Specific Gravity 1.009 (1.001-1.035); Urine Urobilinogen < 2.0 EU/DL (0.2-1.0); WBC,Urine <1 /HPF (0-6)
[2017-07-04] MEDS: MORPHINE 2 MG/1 ML SYRINGE IV PRN ×2 (03:00→11:24)
[2017-07-04] MEDS: metroNIDAZOLE INJ 500 MG in PREMIX 1 EACH IV SCH ×3 (06:09→23:29)
[2017-07-04] MEDS ORDERED: DEXTROSE 5% NACL 0.9% 1,000 ML IV SCH (07:30)
[2017-07-04] MEDS ORDERED: PHENYLEPHRINE 1 MG/10 ML SYRINGE IV ONE (07:47)
[2017-07-04] MEDS ORDERED: PROPOFOL 200 MG/20 ML VIAL IV ONE (07:47)
[2017-07-04] MEDS ORDERED: LIDOCAINE 2% 5 ML VIAL ONE (07:47)
[2017-07-04] MEDS: METOPROLOL SUCCINATE XL 50 MG TABLET PO SCH (10:09)
[2017-07-04] MEDS: PANTOPRAZOLE 40 MG TABLET PO SCH ×2 (10:10→21:31)
[2017-07-04] MEDS: BISACODYL 5 MG TABLET PO SCH ×3 (10:10→23:28)
[2017-07-04] MEDS: MULTIVITAMIN (OCUVITE) TABLET PO SCH ×2 (10:12→21:31)
[2017-07-04] MEDS: DILTIAZEM INJ 100 MG in SODIUM CHLORIDE 0.9% 100 ML IV SCH (11:31)
[2017-07-04] MEDS: LEVOFLOXACIN INJ 750 MG in PREMIX 1 EACH IV SCH (13:25)
[2017-07-04] MEDS: MORPHINE 10 MG/1 ML VIAL IV PRN ×2 (17:41→23:31)
[2017-07-04] MEDS ORDERED: POLYETHYLENE GLYCOL POWDER 255 GM BOTTLE PO ONE (18:00)
[2017-07-04] MEDS ORDERED: MAGNESIUM CITRATE 300 ML BOTTLE PO ONE (21:00)
[2017-07-04] MEDS: SODIUM CHLORIDE 0.9% 1,000 ML IV SCH ×2 (23:35→23:36)
[2017-07-05 05:09] LABS: Basophils % 0.4 % (0.0-0.8); Eosinophils # 0.2 10*3/uL (0.0-0.87); Eosinophils % 3.9 % (0.00-10.9); Hematocrit 35.3 VOL% (42.0-52.0); Hemoglobin 11.6 GM/DL (14.0-18.0); Immature Granulocytes % 0.9 %; Immature Granulocytes Absolute 0.04 #; Lymphocytes # 2.5 10*3/uL (1.4-4.0); Lymphocytes % 53.3 % (21.2-54.2); Mean Corpuscular HGB Conc 32.9 GM/DL (32-36); Mean Corpuscular Hemoglobin 31 PG (27-34); Mean Corpuscular Volume 94.1 FL (87-102); Mean Platelet Volume 10.9 FL (9.6-12.0); Monocytes # 0.5 10*3/uL (0.11-0.8); Monocytes % 10.3 % (1.7-12.7); Neutrophils # 1.5 10*3/uL (1.4-7.4); Neutrophils % 31.2 % (38.7-73.9); Platelet Count 140 T/CUMM (130-400); Red Blood Count 3.75 MC/CUMM (3.8-5.5); Red Cell Distribution Width 15.7 % (9.3-17.3); White Blood Count 4.7 T/CUMM (4-12)
[2017-07-05 05:36] LABS: Band Neutrophils 1 % (0-10); Eosinophils 2 % (0-10); Giant Platelets Few; Hypochromasia 1+; Lymphocytes 42 % (20-55); Ovalocytes Slight; Platelet Estimate Normal; Segmented Neutrophils 41 % (50-85); Total Cells Counted 100
[2017-07-05 05:43] LABS: Calcium 6.7 MG/DL (8.5-10.1); Osmolality,Calculated 276.1 MOS/KG (273-304); Potassium 3.2 MMOL/L (3.5-5.1)
[2017-07-05 05:48] LABS: Albumin 1.7 G/DL (3.4-5.0); Bilirubin,Total 0.7 MG/DL (0.2-1.0); Calcium 6.4 MG/DL (8.5-10.1); Osmolality,Calculated 280.8 MOS/KG (273-304); Potassium 3.2 MMOL/L (3.5-5.1); Total Protein 3.9 G/DL (6.4-8.3)
[2017-07-05] MEDS: metroNIDAZOLE INJ 500 MG in PREMIX 1 EACH IV SCH ×2 (06:22→17:18)
[2017-07-05] MEDS: SODIUM CHLORIDE 0.9% 1,000 ML IV SCH ×2 (06:22→17:11)
[2017-07-05] MEDS ORDERED: POTASSIUM CHLORIDE 20 MEQ TABLET PO PRN (07:26)
[2017-07-05] MEDS: PANTOPRAZOLE 40 MG TABLET PO SCH ×2 (09:59→20:01)
[2017-07-05] MEDS: RIVAROXABAN 20 MG TABLET PO SCH (09:59)
[2017-07-05] MEDS: METOPROLOL SUCCINATE XL 50 MG TABLET PO SCH (09:59)
[2017-07-05] MEDS: MULTIVITAMIN (OCUVITE) TABLET PO SCH ×2 (10:02→20:01)
[2017-07-05] MEDS: MORPHINE 10 MG/1 ML VIAL IV PRN ×2 (11:02→19:58)
[2017-07-05] MEDS ORDERED: PROPOFOL 200 MG/20 ML VIAL IV ONE (13:50)
[2017-07-05] MEDS ORDERED: PHENYLEPHRINE 1 MG/10 ML SYRINGE IV ONE (13:50)
[2017-07-05] MEDS ORDERED: LIDOCAINE 100 MG/5 ML SYRINGE ONE (13:50)
[2017-07-05] MEDS: DILTIAZEM INJ 100 MG in SODIUM CHLORIDE 0.9% 100 ML IV SCH (14:58)
[2017-07-05] MEDS: LEVOFLOXACIN INJ 750 MG in PREMIX 1 EACH IV SCH (15:07)
[2017-07-06] MEDS: metroNIDAZOLE INJ 500 MG in PREMIX 1 EACH IV SCH ×4 (00:31→22:59)
[2017-07-06] MEDS: SODIUM CHLORIDE 0.9% 1,000 ML IV SCH ×3 (00:32→20:34)
[2017-07-06 05:11] LABS: Basophils % 0.3 % (0.0-0.8); Eosinophils # 0.3 10*3/uL (0.0-0.87); Eosinophils % 4.3 % (0.00-10.9); Hematocrit 34.8 VOL% (42.0-52.0); Hemoglobin 12.1 GM/DL (14.0-18.0); Immature Granulocytes % 0.7 %; Immature Granulocytes Absolute 0.04 #; Lymphocytes # 2.2 10*3/uL (1.4-4.0); Lymphocytes % 38.1 % (21.2-54.2); Mean Corpuscular HGB Conc 34.8 GM/DL (32-36); Mean Corpuscular Hemoglobin 32 PG (27-34); Mean Corpuscular Volume 91.1 FL (87-102); Mean Platelet Volume 10.9 FL (9.6-12.0); Monocytes # 0.6 10*3/uL (0.11-0.8); Monocytes % 9.6 % (1.7-12.7); Neutrophils # 2.8 10*3/uL (1.4-7.4); Platelet Count 160 T/CUMM (130-400); Red Blood Count 3.82 MC/CUMM (3.8-5.5); Red Cell Distribution Width 15.5 % (9.3-17.3); White Blood Count 5.9 T/CUMM (4-12)
[2017-07-06 05:33] LABS: Calcium 6.8 MG/DL (8.5-10.1); Osmolality,Calculated 277.1 MOS/KG (273-304); Potassium 3.5 MMOL/L (3.5-5.1)
[2017-07-06 05:56] LABS: Eosinophils 1 % (0-10); Hypochromasia 1+; Lymphocytes 31 % (20-55); Platelet Estimate Normal; Segmented Neutrophils 59 % (50-85); Total Cells Counted 100
[2017-07-06 05:57] LABS: Burr Cells Slight; Giant Platelets Few
[2017-07-06] MEDS: MORPHINE 10 MG/1 ML VIAL IV PRN ×3 (06:25→20:34)
[2017-07-06] MEDS: METOPROLOL SUCCINATE XL 50 MG TABLET PO SCH (08:52)
[2017-07-06] MEDS: MULTIVITAMIN (OCUVITE) TABLET PO SCH ×2 (08:52→20:34)
[2017-07-06] MEDS: PANTOPRAZOLE 40 MG TABLET PO SCH ×2 (08:52→20:34)
[2017-07-06] MEDS: SUCRALFATE 1 GM/10 ML UDCUP PO SCH ×3 (12:18→20:34)
[2017-07-06] MEDS: DILTIAZEM INJ 100 MG in SODIUM CHLORIDE 0.9% 100 ML IV SCH (13:03)
[2017-07-06] MEDS: LEVOFLOXACIN INJ 750 MG in PREMIX 1 EACH IV SCH (13:55)
[2017-07-07] MEDS: metroNIDAZOLE INJ 500 MG in PREMIX 1 EACH IV SCH (06:40)
[2017-07-07] MEDS: SODIUM CHLORIDE 0.9% 1,000 ML IV SCH ×2 (06:41→21:24)
[2017-07-07] MEDS: MULTIVITAMIN (OCUVITE) TABLET PO SCH ×2 (09:54→21:22)
[2017-07-07] MEDS: SUCRALFATE 1 GM/10 ML UDCUP PO SCH ×4 (09:54→21:23)
[2017-07-07] MEDS: PANTOPRAZOLE 40 MG TABLET PO SCH ×2 (09:54→21:22)
[2017-07-07] MEDS: METOPROLOL SUCCINATE XL 50 MG TABLET PO SCH (09:54)
[2017-07-07] MEDS: MORPHINE 10 MG/1 ML VIAL IV PRN ×3 (09:58→22:06)
[2017-07-07] MEDS: DILTIAZEM INJ 100 MG in SODIUM CHLORIDE 0.9% 100 ML IV SCH (12:00)
[2017-07-07] MEDS: CITALOPRAM 20 MG TABLET PO SCH (12:01)
[2017-07-07] MEDS: ACETAMINOPHEN 325 MG TABLET PO PRN (21:23)
[2017-07-08] MEDS: MORPHINE 10 MG/1 ML VIAL IV PRN (05:00)
[2017-07-08 08:47] VITALS: BP 118/61
[2017-07-08] MEDS: METOPROLOL SUCCINATE XL 50 MG TABLET PO SCH (09:52)
[2017-07-08] MEDS: RIVAROXABAN 20 MG TABLET PO SCH (09:52)
[2017-07-08] MEDS: MULTIVITAMIN (OCUVITE) TABLET PO SCH (09:52)
[2017-07-08] MEDS: PANTOPRAZOLE 40 MG TABLET PO SCH (09:52)
[2017-07-08] MEDS: SUCRALFATE 1 GM/10 ML UDCUP PO SCH ×2 (09:52→10:35)
[2017-07-08] MEDS: CITALOPRAM 20 MG TABLET PO SCH (09:52)
[2017-07-08] MEDS: SODIUM CHLORIDE 0.9% 1,000 ML IV SCH (10:34)
[2017-07-08] MEDS: DILTIAZEM INJ 100 MG in SODIUM CHLORIDE 0.9% 100 ML IV SCH (10:35)
[2017-07-11 10:50] LABS: Collection duration of stool Random h (()); Total Weight of Stool 24 g (())
== END 2017-07-08 11:15 | disposition home or self-care (01) | DRG 950 ==
LOC: EDBD → EDUNIT# → N.ED 09:21 → N.EDINP 16:46 → SUATTDRO 16:46 → N.EDINP 18:55 → N.TELES 19:35
PROVIDERS: ADMIT Internal Medicine; ATTEND Pediatrics
PROC: COLONBX (2017-07-05 07:35)

== ENCOUNTER 2017-08-17 17:18 | Inpatient (IN) ==
[2017-08-17] MEDS ORDERED: ALUM/MAG/SIMETH/LIDO VISC 1:1 30 ML BOTTLE PO STA (19:42)
[2017-08-17] MEDS ORDERED: LORazepam 2 MG/1 ML VIAL IV STA (19:42)
[2017-08-17] MEDS ORDERED: methylPREDNISolone SOD SUC 125 MG/2 ML VIAL IV STA (19:42)
[2017-08-17] MEDS ORDERED: HYDROmorphone 2 MG/1 ML VIAL IV STA (19:42)
[2017-08-17] MEDS ORDERED: ALBUTEROL/IPRATROPIUM 3 ML NEB RESP TX STA (19:42)
[2017-08-17] MEDS ORDERED: ALUM/MAG/SIMETH/LIDO VISC 1:1 30 ML BOTTLE PO ONE (20:00)
[2017-08-17] MEDS ORDERED: HYDROmorphone 2 MG/1 ML VIAL ONE (20:00)
[2017-08-17] MEDS ORDERED: methylPREDNISolone SOD SUC 125 MG/2 ML VIAL ONE (20:00)
[2017-08-17] MEDS ORDERED: LORazepam 2 MG/1 ML VIAL ONE (20:01)
[2017-08-17 20:34] LABS: Basophils # 0.1 10*3/uL (0.0-0.2); Basophils % 0.9 % (0.0-0.8); Eosinophils # 0.3 10*3/uL (0.0-0.87); Eosinophils % 3.5 % (0.00-10.9); Hemoglobin 13.8 GM/DL (14.0-18.0); Immature Granulocytes % 0.5 %; Immature Granulocytes Absolute 0.05 #; Lymphocytes # 3.3 10*3/uL (1.4-4.0); Lymphocytes % 33.4 % (21.2-54.2); Mean Corpuscular HGB Conc 32.9 GM/DL (32-36); Mean Corpuscular Hemoglobin 31 PG (27-34); Mean Corpuscular Volume 93.8 FL (87-102); Mean Platelet Volume 11.4 FL (9.6-12.0); Monocytes # 0.8 10*3/uL (0.11-0.8); Monocytes % 8.4 % (1.7-12.7); Neutrophils # 5.2 10*3/uL (1.4-7.4); Neutrophils % 53.3 % (38.7-73.9); Platelet Count 263 T/CUMM (130-400); Red Blood Count 4.48 MC/CUMM (3.8-5.5); Red Cell Distribution Width 16.6 % (9.3-17.3); White Blood Count 9.8 T/CUMM (4-12)
[2017-08-17 20:39] LABS: INR 1.2; PT Patient Result 12.5 SECS
[2017-08-17 21:50] LABS: Albumin 1.8 G/DL (3.4-5.0); Bilirubin,Total 0.5 MG/DL (0.2-1.0); Calcium 7.3 MG/DL (8.5-10.1); Osmolality,Calculated 289.4 MOS/KG (273-304); Potassium 3.4 MMOL/L (3.5-5.1); Total Protein 4.4 G/DL (6.4-8.3)
[2017-08-17] MEDS ORDERED: VECURONIUM 10 MG VIAL IV ONE (21:54)
[2017-08-17] MEDS ORDERED: MAGNESIUM SULF RIDER 2 GM in PREMIX 1 EACH IV STA (22:07)
[2017-08-17] MEDS ORDERED: MAGNESIUM SULF RIDER 50 ML IV ONE (23:46)
[2017-08-18] MEDS ORDERED: MORPHINE 2 MG/1 ML SYRINGE IV STA (00:01)
[2017-08-18] MEDS ORDERED: HYDROmorphone 2 MG/1 ML VIAL IV STA (00:02)
[2017-08-18 04:01] LABS: Basophils % 0.4 % (0.0-0.8); Hematocrit 41.1 VOL% (42.0-52.0); Hemoglobin 13.7 GM/DL (14.0-18.0); Immature Granulocytes % 0.8 %; Immature Granulocytes Absolute 0.04 #; Lymphocytes # 0.7 10*3/uL (1.4-4.0); Lymphocytes % 12.8 % (21.2-54.2); Mean Corpuscular HGB Conc 33.3 GM/DL (32-36); Mean Corpuscular Hemoglobin 31 PG (27-34); Mean Corpuscular Volume 93.2 FL (87-102); Mean Platelet Volume 10.5 FL (9.6-12.0); Monocytes % 0.8 % (1.7-12.7); Neutrophils # 4.3 10*3/uL (1.4-7.4); Neutrophils % 85.2 % (38.7-73.9); Platelet Count 259 T/CUMM (130-400); Red Blood Count 4.41 MC/CUMM (3.8-5.5); Red Cell Distribution Width 16.9 % (9.3-17.3); White Blood Count 5.1 T/CUMM (4-12)
[2017-08-18 04:21] LABS: Albumin 2.1 G/DL (3.4-5.0); Bilirubin,Total 0.5 MG/DL (0.2-1.0); Calcium 7.5 MG/DL (8.5-10.1); Osmolality,Calculated 283.8 MOS/KG (273-304); Potassium 3.9 MMOL/L (3.5-5.1); Total Protein 5.1 G/DL (6.4-8.3)
[2017-08-18 05:16] LABS: Apearance,Urine CLEAR (Clear); Bilirubin,Urine Negative (Negative); Blood, Urine Negative (Negative); Glucose,Urine (UA) Negative (Negative); Ketones,Urine 5 mg/dL (Negative); Mucus,Urine Occasional /LPF (Occasional); Nitrite,Urine Negative (Negative); Protein,Urine Negative; RBC,Urine 1 /HPF (0-4); Urine Color Yellow (Yellow); Urine Specific Gravity 1.049 (1.001-1.035); WBC,Urine <1 /HPF (0-6)
[2017-08-18] MEDS: POTASSIUM CHLORIDE INJ 40 MEQ in SODIUM CHLORIDE 0.45% 1,000 ML IV SCH ×2 (07:23→17:08)
[2017-08-18] MEDS ORDERED: MAGNESIUM OXIDE 400 MG TABLET ONE (08:36)
[2017-08-18] MEDS ORDERED: DIAZEPAM 5 MG TABLET PO ONE (09:32)
[2017-08-18] MEDS: METOPROLOL SUCCINATE XL 50 MG TABLET PO SCH (09:40)
[2017-08-18] MEDS: MULTIVITAMIN (OCUVITE) TABLET PO SCH ×2 (09:41→20:45)
[2017-08-18] MEDS: MAGNESIUM OXIDE 400 MG TABLET PO SCH ×2 (09:41→20:45)
[2017-08-18] MEDS: DIPHENOXYLATE/ATROPINE 2.5-0.025 MG TABLET PO PRN (15:27)
[2017-08-18] MEDS: PROCHLORPERAZINE 10 MG TABLET PO PRN ×2 (15:27→21:17)
[2017-08-18] MEDS: HYDROmorphone 2 MG/1 ML VIAL IV PRN ×2 (17:05→21:11)
[2017-08-19] MEDS: HYDROmorphone 2 MG/1 ML VIAL IV PRN ×3 (01:25→09:33)
[2017-08-19] MEDS: POTASSIUM CHLORIDE INJ 40 MEQ in SODIUM CHLORIDE 0.45% 1,000 ML IV SCH ×2 (03:05→14:03)
[2017-08-19] MEDS: MULTIVITAMIN (OCUVITE) TABLET PO SCH ×2 (08:47→20:48)
[2017-08-19] MEDS: MAGNESIUM OXIDE 400 MG TABLET PO SCH ×2 (08:47→20:48)
[2017-08-19] MEDS: METOPROLOL SUCCINATE XL 50 MG TABLET PO SCH (08:47)
[2017-08-19] MEDS: DIPHENOXYLATE/ATROPINE 2.5-0.025 MG TABLET PO PRN (08:52)
[2017-08-19] MEDS: PROCHLORPERAZINE 10 MG TABLET PO PRN (08:52)
[2017-08-19] MEDS: APIXABAN 5 MG TABLET PO SCH ×2 (12:18→20:48)
[2017-08-19] MEDS: PANTOPRAZOLE 40 MG TABLET PO SCH (12:18)
[2017-08-20] MEDS: POTASSIUM CHLORIDE INJ 40 MEQ in SODIUM CHLORIDE 0.45% 1,000 ML IV SCH ×2 (02:01)
[2017-08-20 05:30] LABS: Basophils # 0.1 10*3/uL (0.0-0.2); Basophils % 1.2 % (0.0-0.8); Eosinophils # 0.4 10*3/uL (0.0-0.87); Eosinophils % 6.2 % (0.00-10.9); Hematocrit 37.8 VOL% (42.0-52.0); Hemoglobin 12.1 GM/DL (14.0-18.0); Immature Granulocytes % 0.6 %; Immature Granulocytes Absolute 0.04 #; Lymphocytes # 2.8 10*3/uL (1.4-4.0); Lymphocytes % 40.3 % (21.2-54.2); Mean Corpuscular Hemoglobin 31 PG (27-34); Mean Corpuscular Volume 95.2 FL (87-102); Mean Platelet Volume 10.6 FL (9.6-12.0); Monocytes # 0.7 10*3/uL (0.11-0.8); Neutrophils # 2.9 10*3/uL (1.4-7.4); Neutrophils % 41.7 % (38.7-73.9); Platelet Count 179 T/CUMM (130-400); Red Blood Count 3.97 MC/CUMM (3.8-5.5); Red Cell Distribution Width 16.9 % (9.3-17.3); White Blood Count 6.8 T/CUMM (4-12)
[2017-08-20 06:13] LABS: Calcium 7.3 MG/DL (8.5-10.1); Potassium 4.9 MMOL/L (3.5-5.1)
[2017-08-20] MEDS: MULTIVITAMIN (OCUVITE) TABLET PO SCH (08:30)
[2017-08-20] MEDS: MAGNESIUM OXIDE 400 MG TABLET PO SCH (08:30)
[2017-08-20] MEDS: PANTOPRAZOLE 40 MG TABLET PO SCH (08:31)
[2017-08-20] MEDS: METOPROLOL SUCCINATE XL 50 MG TABLET PO SCH (08:31)
[2017-08-20] MEDS: APIXABAN 5 MG TABLET PO SCH (08:31)
[2017-08-20] MEDS: DIPHENOXYLATE/ATROPINE 2.5-0.025 MG TABLET PO PRN (08:38)
[2017-08-20 08:57] VITALS: BP 129/73
== END 2017-08-20 12:40 | disposition home or self-care (01) | DRG 197 ==
LOC: N.ED 17:18 → N.EDINP 08-18 00:12 → SUATTDRO 08-18 00:12 → N.TELES 08-18 11:40
PROVIDERS: ADMIT Family Medicine; ATTEND Hospitalist

== ENCOUNTER 2017-09-08 14:12 | Inpatient (IN) ==
[2017-09-08] MEDS: HYDROmorphone 2 MG/1 ML VIAL IV STA ×2 (15:44→15:47)
[2017-09-08] MEDS ORDERED: MORPHINE 2 MG/1 ML SYRINGE IV STA (15:45)
[2017-09-08] MEDS ORDERED: MORPHINE 2 MG/1 ML SYRINGE ONE ×2 (15:48)
[2017-09-08 15:50] LABS: Basophils # 0.1 10*3/uL (0.0-0.2); Basophils % 0.6 % (0.0-0.8); Eosinophils # 0.3 10*3/uL (0.0-0.87); Eosinophils % 3.2 % (0.00-10.9); Hematocrit 39.3 VOL% (42.0-52.0); Hemoglobin 13.3 GM/DL (14.0-18.0); Immature Granulocytes % 0.6 %; Immature Granulocytes Absolute 0.05 #; Lymphocytes # 2.5 10*3/uL (1.4-4.0); Lymphocytes % 31.2 % (21.2-54.2); Mean Corpuscular HGB Conc 33.8 GM/DL (32-36); Mean Corpuscular Hemoglobin 31 PG (27-34); Mean Corpuscular Volume 92.3 FL (87-102); Mean Platelet Volume 10.4 FL (9.6-12.0); Monocytes # 0.8 10*3/uL (0.11-0.8); Monocytes % 10.4 % (1.7-12.7); Neutrophils # 4.4 10*3/uL (1.4-7.4); Platelet Count 255 T/CUMM (130-400); Red Blood Count 4.26 MC/CUMM (3.8-5.5); White Blood Count 8.1 T/CUMM (4-12)
[2017-09-08 15:51] LABS: Apearance,Urine CLEAR (Clear); Bilirubin,Urine Negative (Negative); Blood, Urine Negative (Negative); Glucose,Urine (UA) Negative (Negative); Ketones,Urine Negative (Negative); Mucus,Urine Occasional /LPF (Occasional); Nitrite,Urine Negative (Negative); Protein,Urine Negative; RBC,Urine <1 /HPF (0-4); Urine Color Straw (Yellow); Urine Specific Gravity 1.005 (1.001-1.035); Urine Urobilinogen < 2.0 EU/DL (0.2-1.0); WBC,Urine <1 /HPF (0-6)
[2017-09-08 15:57] LABS: Barbiturates Screen,Urine Negative (Negative); Benzodiazepines Screen,Urine Positive (Negative); Cannabinoid Screen,Urine Negative (Negative); Opiate Screen,Urine Positive (Negative); Phencyclidine Screen,Urine Negative (Negative)
[2017-09-08 16:19] LABS: Albumin 2.1 G/DL (3.4-5.0); Bilirubin,Total 0.4 MG/DL (0.2-1.0); Calcium 7.5 MG/DL (8.5-10.1); Osmolality,Calculated 277.3 MOS/KG (273-304); Total Protein 4.9 G/DL (6.4-8.3)
[2017-09-08 16:50] LABS: INR 1.1; PT Patient Result 11.1 SECS; Partial Thromboplastin Time 25.5 SECS (0-40)
[2017-09-08] MEDS ORDERED: HYDROmorphone 2 MG/1 ML VIAL IV PRN (20:27)
[2017-09-08] MEDS ORDERED: NON-FORMULARY MEDICATION (Aspirin/Acetaminophen/Caffeine [Excedrin Migraine Caplet] 1 EACH PO PRN (20:27)
[2017-09-08] MEDS ORDERED: NITROGLYCERIN 0.2 MG/HR PATCH TRANSDERM PRN (20:27)
[2017-09-08] MEDS: DICYCLOMINE 10 MG CAPSULE PO SCH (21:10)
[2017-09-08] MEDS ORDERED: ENOXAPARIN 40 MG/0.4 ML SYRINGE SUBCUT SCH (21:30)
[2017-09-08 21:43] LABS: Risk Ratio 3.57; Thyroid Stimulating Hormone 0.711 uIU/ml (0.358-3.74); VLDL CHOLESTEROL 15.4 MG/DL
[2017-09-09] MEDS: DIAZEPAM 5 MG TABLET PO PRN (02:17)
[2017-09-09 02:49] LABS: Basophils # 0.1 10*3/uL (0.0-0.2); Basophils % 0.6 % (0.0-0.8); Eosinophils # 0.5 10*3/uL (0.0-0.87); Eosinophils % 6.3 % (0.00-10.9); Hematocrit 37.4 VOL% (42.0-52.0); Hemoglobin 12.9 GM/DL (14.0-18.0); Immature Granulocytes % 0.8 %; Immature Granulocytes Absolute 0.06 #; Lymphocytes # 3.1 10*3/uL (1.4-4.0); Lymphocytes % 39.2 % (21.2-54.2); Mean Corpuscular HGB Conc 34.5 GM/DL (32-36); Mean Corpuscular Hemoglobin 31 PG (27-34); Mean Corpuscular Volume 89.5 FL (87-102); Mean Platelet Volume 10.5 FL (9.6-12.0); Monocytes # 0.8 10*3/uL (0.11-0.8); Monocytes % 10.3 % (1.7-12.7); Neutrophils # 3.4 10*3/uL (1.4-7.4); Neutrophils % 42.8 % (38.7-73.9); Platelet Count 238 T/CUMM (130-400); Red Blood Count 4.18 MC/CUMM (3.8-5.5)
[2017-09-09 03:02] LABS: INR 1.1; PT Patient Result 11.8 SECS
[2017-09-09 03:08] LABS: Albumin 1.9 G/DL (3.4-5.0); Bilirubin,Total 0.6 MG/DL (0.2-1.0); Calcium 7.4 MG/DL (8.5-10.1); Osmolality,Calculated 277.3 MOS/KG (273-304); Potassium 3.9 MMOL/L (3.5-5.1); Total Protein 4.4 G/DL (6.4-8.3)
[2017-09-09 03:32] LABS: Apearance,Urine CLEAR (Clear); Bilirubin,Urine Negative (Negative); Blood, Urine Negative (Negative); Glucose,Urine (UA) Negative (Negative); Ketones,Urine Negative (Negative); Nitrite,Urine Negative (Negative); Protein,Urine Negative; Urine Color Straw (Yellow); Urine Specific Gravity 1.013 (1.001-1.035); Urine Urobilinogen < 2.0 EU/DL (0.2-1.0)
[2017-09-09] MEDS: DIPHENOXYLATE/ATROPINE 2.5-0.025 MG TABLET PO PRN (07:37)
[2017-09-09] MEDS: PROCHLORPERAZINE 10 MG TABLET PO PRN ×2 (07:37→13:23)
[2017-09-09] MEDS ORDERED: ONDANSETRON 4 MG/2 ML VIAL IV PRN (09:04)
[2017-09-09] MEDS: PANTOPRAZOLE 40 MG TABLET PO SCH (09:44)
[2017-09-09] MEDS: DICYCLOMINE 10 MG CAPSULE PO SCH ×4 (09:44→21:04)
[2017-09-09] MEDS: LEVOFLOXACIN 750 MG TABLET PO SCH (09:44)
[2017-09-09] MEDS: METOPROLOL SUCCINATE XL 50 MG TABLET PO SCH (09:44)
[2017-09-09] MEDS: predniSONE 10 MG TABLET PO SCH (09:45)
[2017-09-09] MEDS: APIXABAN 5 MG TABLET PO SCH (21:04)
[2017-09-10] MEDS: DIPHENOXYLATE/ATROPINE 2.5-0.025 MG TABLET PO PRN (08:49)
[2017-09-10] MEDS: DICYCLOMINE 10 MG CAPSULE PO SCH ×4 (08:50→21:09)
[2017-09-10] MEDS: PROCHLORPERAZINE 10 MG TABLET PO PRN (08:50)
[2017-09-10] MEDS: predniSONE 10 MG TABLET PO SCH (08:50)
[2017-09-10] MEDS: METOPROLOL SUCCINATE XL 50 MG TABLET PO SCH (08:50)
[2017-09-10] MEDS: LEVOFLOXACIN 750 MG TABLET PO SCH (08:51)
[2017-09-10] MEDS: APIXABAN 5 MG TABLET PO SCH ×2 (08:51→21:13)
[2017-09-10] MEDS: PANTOPRAZOLE 40 MG TABLET PO SCH (08:51)
[2017-09-11] MEDS: DICYCLOMINE 10 MG CAPSULE PO SCH ×3 (08:53→16:40)
[2017-09-11] MEDS: APIXABAN 5 MG TABLET PO SCH (08:53)
[2017-09-11] MEDS: METOPROLOL SUCCINATE XL 50 MG TABLET PO SCH (08:58)
[2017-09-11] MEDS: LEVOFLOXACIN 750 MG TABLET PO SCH (08:58)
[2017-09-11] MEDS: predniSONE 10 MG TABLET PO SCH (08:58)
[2017-09-11] MEDS: PANTOPRAZOLE 40 MG TABLET PO SCH (08:58)
[2017-09-11] MEDS: PROCHLORPERAZINE 10 MG TABLET PO PRN (09:00)
[2017-09-11] MEDS: DIPHENOXYLATE/ATROPINE 2.5-0.025 MG TABLET PO PRN (09:03)
[2017-09-11] MEDS: DIAZEPAM 5 MG TABLET PO PRN (09:03)
[2017-09-11] MEDS ORDERED: NICOTINE 14 MG/24 HR PATCH TRANSDERM SCH (09:30)
[2017-09-11] MEDS ORDERED: HYDROmorphone 2 MG/1 ML VIAL IV ONE (10:54)
[2017-09-11] MEDS ORDERED: WARFARIN 2.5 MG TABLET PO SCH (11:00)
[2017-09-11] MEDS ORDERED: MORPHINE 2 MG/1 ML SYRINGE IV ONE (12:07)
[2017-09-11 13:05] VITALS: BP 132/99
[2017-09-11] MEDS ORDERED: PANTOPRAZOLE 40 MG TABLET PO SCH (21:00)
[2017-09-12 12:46] LABS: Protein C Activity Plasma 75 % (70 - 150)
[2017-09-12 14:41] LABS: Protein S Activity Plasma 105 % (65 - 160)
[2017-09-13 11:40] LABS: INR 1.1
[2017-09-13 12:26] LABS: Protein C Antigen 83 % (70-150)
[2017-09-13 17:07] LABS: F5DNA Reviewed By SEE COMMENTS; Factor V Leiden (R506Q) Mutati Heterozygous (Negative)
== END 2017-09-11 17:02 | disposition home or self-care (01) | DRG 134 ==
LOC: EDBD → EDUNIT# → N.ED 14:12 → N.EDINP 18:03 → N.TELEN 19:22
PROVIDERS: ADMIT Hospitalist; ATTEND Hospitalist

== ENCOUNTER 2017-10-13 17:23 | Inpatient (IN) ==
[2017-10-13 19:11] LABS: Basophils # 0.1 10*3/uL (0.0-0.2); Basophils % 0.7 % (0.0-0.8); Eosinophils # 0.3 10*3/uL (0.0-0.87); Eosinophils % 2.9 % (0.00-10.9); Hematocrit 44.6 VOL% (42.0-52.0); Hemoglobin 14.4 GM/DL (14.0-18.0); Immature Granulocytes % 0.7 %; Immature Granulocytes Absolute 0.07 #; Lymphocytes # 2.8 10*3/uL (1.4-4.0); Lymphocytes % 27.4 % (21.2-54.2); Mean Corpuscular HGB Conc 32.3 GM/DL (32-36); Mean Corpuscular Hemoglobin 31 PG (27-34); Mean Corpuscular Volume 96.3 FL (87-102); Mean Platelet Volume 10.7 FL (9.6-12.0); Monocytes # 0.9 10*3/uL (0.11-0.8); Monocytes % 8.8 % (1.7-12.7); Neutrophils % 59.5 % (38.7-73.9); Platelet Count 335 T/CUMM (130-400); Red Blood Count 4.63 MC/CUMM (3.8-5.5); Red Cell Distribution Width 16.2 % (9.3-17.3)
[2017-10-13 19:20] LABS: PT Patient Result 10.7 SECS
[2017-10-13 19:28] LABS: Blood Urea Nitrogen 9 MG/DL (7-18); CKMB % 2.3 %; Calcium 7.7 MG/DL (8.5-10.1); Glucose 82 MG/DL (74-106); Osmolality,Calculated 285.7 MOS/KG (273-304); Potassium 4.5 MMOL/L (3.5-5.1); Sodium 145 MMOL/L (136-145); Troponin I Only < 0.015 NG/ML (0.00-0.045)
[2017-10-13] MEDS ORDERED: ENOXAPARIN 100 MG/ML SYRINGE SUBCUT STA (20:11)
[2017-10-13] MEDS ORDERED: ENOXAPARIN 40 MG/0.4 ML SYRINGE ONE (20:19)
[2017-10-13] MEDS ORDERED: ENOXAPARIN 30 MG/0.3 ML SYRINGE ONE (20:19)
[2017-10-13] MEDS ORDERED: HEPARIN 5,000 UNIT/1 ML VIAL IV ONE (20:36)
[2017-10-13] MEDS ORDERED: predniSONE 10 MG TABLET PO PRN (20:37)
[2017-10-13] MEDS ORDERED: HEPARIN 5,000 UNIT/1 ML VIAL ONE (20:47)
[2017-10-13] MEDS ORDERED: HEPARIN DRIP 25,000 UNITS/500 ML PREMIX IV SCH (21:00)
[2017-10-13] MEDS ORDERED: ALBUTEROL/IPRATROPIUM 3 ML NEB RESP TX PRN (22:09)
[2017-10-13] MEDS: DICYCLOMINE 10 MG CAPSULE PO PRN (22:34)
[2017-10-13] MEDS: DIAZEPAM 5 MG TABLET PO PRN (22:34)
[2017-10-13] MEDS: PANTOPRAZOLE 40 MG TABLET PO SCH (22:34)
[2017-10-14 05:29] LABS: Basophils # 0.1 10*3/uL (0.0-0.2); Basophils % 0.8 % (0.0-0.8); Eosinophils # 0.6 10*3/uL (0.0-0.87); Eosinophils % 6.1 % (0.00-10.9); Hematocrit 38.1 VOL% (42.0-52.0); Hemoglobin 12.9 GM/DL (14.0-18.0); Immature Granulocytes % 0.7 %; Immature Granulocytes Absolute 0.06 #; Lymphocytes # 3.1 10*3/uL (1.4-4.0); Lymphocytes % 34.6 % (21.2-54.2); Mean Corpuscular HGB Conc 33.9 GM/DL (32-36); Mean Corpuscular Hemoglobin 32 PG (27-34); Mean Corpuscular Volume 93.6 FL (87-102); Mean Platelet Volume 10.7 FL (9.6-12.0); Monocytes # 0.9 10*3/uL (0.11-0.8); Monocytes % 9.6 % (1.7-12.7); Neutrophils # 4.3 10*3/uL (1.4-7.4); Neutrophils % 48.2 % (38.7-73.9); Platelet Count 279 T/CUMM (130-400); Red Blood Count 4.07 MC/CUMM (3.8-5.5); Red Cell Distribution Width 16.3 % (9.3-17.3)
[2017-10-14 05:37] LABS: INR 1.1; PT Patient Result 11.6 SECS; Partial Thromboplastin Time 30.3 SECS (0-40)
[2017-10-14 05:58] LABS: Calcium 7.6 MG/DL (8.5-10.1); Osmolality,Calculated 279.1 MOS/KG (273-304); Potassium 4.4 MMOL/L (3.5-5.1)
[2017-10-14 06:01] LABS: Albumin 2.1 G/DL (3.4-5.0); Bilirubin,Direct 0.18 MG/DL (0.0-0.20); Bilirubin,Indirect 0.8 MG/DL (0.0-1.0); Total Protein 4.6 G/DL (6.4-8.3)
[2017-10-14] MEDS: DICYCLOMINE 10 MG CAPSULE PO PRN ×2 (07:39→13:21)
[2017-10-14] MEDS: PANTOPRAZOLE 40 MG TABLET PO SCH ×3 (07:40→20:35)
[2017-10-14] MEDS: PROCHLORPERAZINE 10 MG TABLET PO PRN (07:41)
[2017-10-14] MEDS: HEPARIN DRIP 25,000 UNITS/500 ML PREMIX IV SCH (07:49)
[2017-10-14] MEDS: WARFARIN 2.5 MG TABLET PO SCH (08:50)
[2017-10-14] MEDS: METOPROLOL SUCCINATE XL 50 MG TABLET PO SCH (08:50)
[2017-10-14] MEDS: DIAZEPAM 5 MG TABLET PO PRN (10:14)
[2017-10-14] MEDS ORDERED: DIPHENOXYLATE/ATROPINE 2.5-0.025 MG TABLET PO SCH (17:00)
[2017-10-15 02:36] LABS: INR 1.1; PT Patient Result 11.8 SECS
[2017-10-15] MEDS: HEPARIN DRIP 25,000 UNITS/500 ML PREMIX IV SCH ×2 (06:41→09:16)
[2017-10-15] MEDS: DICYCLOMINE 10 MG CAPSULE PO PRN (07:40)
[2017-10-15] MEDS: DIPHENOXYLATE/ATROPINE 2.5-0.025 MG TABLET PO PRN (07:40)
[2017-10-15] MEDS: PANTOPRAZOLE 40 MG TABLET PO SCH ×2 (08:26→21:17)
[2017-10-15] MEDS: WARFARIN 2.5 MG TABLET PO SCH (08:26)
[2017-10-15] MEDS: MULTIVITAMIN (CENTRUM) TABLET PO SCH (08:26)
[2017-10-15] MEDS: METOPROLOL SUCCINATE XL 50 MG TABLET PO SCH (08:26)
[2017-10-15] MEDS ORDERED: WARFARIN 2.5 MG TABLET PO ONE (09:38)
[2017-10-15] MEDS ORDERED: WARFARIN 2.5 MG TABLET PO SCH (18:00)
[2017-10-16 05:46] LABS: INR 1.2; PT Patient Result 12.4 SECS
[2017-10-16] MEDS: MULTIVITAMIN (CENTRUM) TABLET PO SCH (08:26)
[2017-10-16] MEDS: PANTOPRAZOLE 40 MG TABLET PO SCH ×2 (08:26→20:52)
[2017-10-16] MEDS: METOPROLOL SUCCINATE XL 50 MG TABLET PO SCH (08:26)
[2017-10-16] MEDS: DICYCLOMINE 10 MG CAPSULE PO PRN ×2 (08:27→14:25)
[2017-10-16] MEDS: DIPHENOXYLATE/ATROPINE 2.5-0.025 MG TABLET PO PRN ×2 (08:28→14:25)
[2017-10-16] MEDS: PROCHLORPERAZINE 10 MG TABLET PO PRN ×2 (08:29→14:26)
[2017-10-16] MEDS ORDERED: WARFARIN 2.5 MG TABLET PO ONE (09:16)
[2017-10-16] MEDS: HEPARIN DRIP 25,000 UNITS/500 ML PREMIX IV SCH (10:48)
[2017-10-16] MEDS: DIAZEPAM 5 MG TABLET PO PRN (14:26)
[2017-10-16] MEDS ORDERED: WARFARIN 7.5 MG TABLET PO SCH (18:00)
[2017-10-16] MEDS ORDERED: WARFARIN 5 MG TABLET PO SCH (18:00)
[2017-10-16] MEDS: ZINC OXIDE PASTE 113 GM TUBE TOP SCH ×2 (18:50→20:53)
[2017-10-17 05:00] LABS: Basophils # 0.1 10*3/uL (0.0-0.2); Basophils % 0.7 % (0.0-0.8); Eosinophils # 0.3 10*3/uL (0.0-0.87); Eosinophils % 3.6 % (0.00-10.9); Hematocrit 40.7 VOL% (42.0-52.0); Hemoglobin 13.7 GM/DL (14.0-18.0); Immature Granulocytes % 0.3 %; Immature Granulocytes Absolute 0.03 #; Lymphocytes # 3.5 10*3/uL (1.4-4.0); Lymphocytes % 39.9 % (21.2-54.2); Mean Corpuscular HGB Conc 33.7 GM/DL (32-36); Mean Corpuscular Hemoglobin 32 PG (27-34); Mean Platelet Volume 10.8 FL (9.6-12.0); Monocytes % 11.2 % (1.7-12.7); Neutrophils # 3.9 10*3/uL (1.4-7.4); Neutrophils % 44.3 % (38.7-73.9); Platelet Count 255 T/CUMM (130-400); Red Blood Count 4.33 MC/CUMM (3.8-5.5); Red Cell Distribution Width 16.2 % (9.3-17.3); White Blood Count 8.8 T/CUMM (4-12)
[2017-10-17 05:15] LABS: INR 1.4; PT Patient Result 14.3 SECS
[2017-10-17 05:28] LABS: Calcium 7.8 MG/DL (8.5-10.1); Potassium 4.2 MMOL/L (3.5-5.1)
[2017-10-17 05:56] LABS: Barbiturates Screen,Urine Negative (Negative); Benzodiazepines Screen,Urine Positive (Negative); Cannabinoid Screen,Urine Negative (Negative); Opiate Screen,Urine Positive (Negative); Phencyclidine Screen,Urine Negative (Negative)
[2017-10-17] MEDS: DICYCLOMINE 10 MG CAPSULE PO PRN ×3 (06:35→20:44)
[2017-10-17] MEDS: PROCHLORPERAZINE 10 MG TABLET PO PRN ×2 (06:35→18:13)
[2017-10-17] MEDS: DIPHENOXYLATE/ATROPINE 2.5-0.025 MG TABLET PO PRN ×3 (06:35→20:44)
[2017-10-17] MEDS: METOPROLOL SUCCINATE XL 50 MG TABLET PO SCH (09:00)
[2017-10-17] MEDS: MULTIVITAMIN (CENTRUM) TABLET PO SCH (09:00)
[2017-10-17] MEDS: PANTOPRAZOLE 40 MG TABLET PO SCH ×2 (09:00→20:44)
[2017-10-17] MEDS: ZINC OXIDE PASTE 113 GM TUBE TOP SCH ×2 (09:00→20:46)
[2017-10-17] MEDS: HEPARIN DRIP 25,000 UNITS/500 ML PREMIX IV SCH (10:07)
[2017-10-17] MEDS ORDERED: WARFARIN 2.5 MG TABLET PO SCH (18:00)
[2017-10-18] MEDS: DICYCLOMINE 10 MG CAPSULE PO PRN (06:35)
[2017-10-18] MEDS: DIPHENOXYLATE/ATROPINE 2.5-0.025 MG TABLET PO PRN (06:35)
[2017-10-18] MEDS: PROCHLORPERAZINE 10 MG TABLET PO PRN (06:35)
[2017-10-18 08:28] LABS: INR 1.9; PT Patient Result 19.6 SECS
[2017-10-18] MEDS: PANTOPRAZOLE 40 MG TABLET PO SCH (09:37)
[2017-10-18] MEDS: MULTIVITAMIN (CENTRUM) TABLET PO SCH (09:37)
[2017-10-18] MEDS: ZINC OXIDE PASTE 113 GM TUBE TOP SCH (09:37)
[2017-10-18] MEDS: METOPROLOL SUCCINATE XL 50 MG TABLET PO SCH (09:37)
[2017-10-18] MEDS: HEPARIN DRIP 25,000 UNITS/500 ML PREMIX IV SCH (09:46)
[2017-10-18 10:51] LABS: Basophils # 0.1 10*3/uL (0.0-0.2); Basophils % 0.7 % (0.0-0.8); Eosinophils # 0.1 10*3/uL (0.0-0.87); Eosinophils % 1.2 % (0.00-10.9); Hematocrit 37.4 VOL% (42.0-52.0); Hemoglobin 12.4 GM/DL (14.0-18.0); Immature Granulocytes % 0.3 %; Immature Granulocytes Absolute 0.04 #; Lymphocytes # 2.3 10*3/uL (1.4-4.0); Lymphocytes % 18.8 % (21.2-54.2); Mean Corpuscular HGB Conc 33.2 GM/DL (32-36); Mean Corpuscular Hemoglobin 31 PG (27-34); Mean Corpuscular Volume 94.7 FL (87-102); Mean Platelet Volume 11.6 FL (9.6-12.0); Monocytes # 1.1 10*3/uL (0.11-0.8); Monocytes % 9.1 % (1.7-12.7); Neutrophils # 8.5 10*3/uL (1.4-7.4); Neutrophils % 69.9 % (38.7-73.9); Platelet Count 212 T/CUMM (130-400); Red Blood Count 3.95 MC/CUMM (3.8-5.5); Red Cell Distribution Width 16.2 % (9.3-17.3); White Blood Count 12.2 T/CUMM (4-12)
[2017-10-18 11:10] VITALS: BP 114/64
== END 2017-10-18 12:44 | disposition home or self-care (01) | DRG 197 ==
LOC: N.ED 17:23 → SUATTDRO 20:29 → N.EDINP 20:29 → N.4E 21:29
PROVIDERS: ADMIT Internal Medicine Geriatric Medicine; ATTEND Internal Medicine

== ENCOUNTER 2017-10-27 16:05 | Inpatient (IN) ==
[2017-10-31 11:45] VITALS: BP 112/67
== END 2017-10-31 15:40 | disposition home or self-care (01) | DRG 197 ==
LOC: N.ED 16:05 → N.EDINP 20:37 → SUATTDRO 20:37 → N.EDINP 22:50 → N.5E 22:54
PROVIDERS: ADMIT Family Medicine; ATTEND Internal Medicine

== ENCOUNTER 2018-07-09 15:18 | Inpatient (IN) ==
[2018-07-09] MEDS ORDERED: SODIUM CHLORIDE 0.9% 500 ML IV STA (16:45)
[2018-07-09] MEDS ORDERED: PANTOPRAZOLE 40 MG VIAL IV STA (16:45)
[2018-07-09] MEDS ORDERED: HYDROmorphone 2 MG/1 ML VIAL IV STA (16:45)
[2018-07-09] MEDS ORDERED: PROMETHAZINE 25 MG/1 ML VIAL IM STA (16:45)
[2018-07-09] MEDS ORDERED: ALUM/MAG/SIMETH/LIDO VISC 1:1 30 ML BOTTLE PO STA (16:45)
[2018-07-09 17:39] LABS: Basophils # 0.1 10*3/uL (0.0-0.2); Basophils % 1.1 % (0.0-0.8); Eosinophils # 0.5 10*3/uL (0.0-0.87); Eosinophils % 5.6 % (0.00-10.9); Hematocrit 38.5 VOL% (42.0-52.0); Hemoglobin 12.7 GM/DL (14.0-18.0); Immature Granulocytes % 0.5 %; Immature Granulocytes Absolute 0.04 #; Lymphocytes # 2.3 10*3/uL (1.4-4.0); Lymphocytes % 27.6 % (21.2-54.2); Mean Corpuscular Hemoglobin 32 PG (27-34); Mean Corpuscular Volume 95.5 FL (87-102); Mean Platelet Volume 10.4 FL (9.6-12.0); Monocytes # 0.6 10*3/uL (0.11-0.8); Monocytes % 7.5 % (1.7-12.7); Neutrophils # 4.9 10*3/uL (1.4-7.4); Neutrophils % 57.7 % (38.7-73.9); Platelet Count 301 T/CUMM (130-400); Red Blood Count 4.03 MC/CUMM (3.8-5.5); Red Cell Distribution Width 13.8 % (9.3-17.3); White Blood Count 8.4 T/CUMM (4-12)
[2018-07-09 17:46] LABS: INR 1.1; PT Patient Result 12.1 SECS
[2018-07-09 18:05] LABS: Bilirubin,Total 0.4 MG/DL (0.2-1.0); Calcium 7.4 MG/DL (8.5-10.1); Potassium 3.8 MMOL/L (3.5-5.1); Total Protein 4.9 G/DL (6.4-8.3)
[2018-07-09 19:00] LABS: Apearance,Urine CLEAR (Clear); Bilirubin,Urine Negative (Negative); Blood, Urine Negative (Negative); Glucose,Urine (UA) Negative (Negative); Ketones,Urine Negative (Negative); Mucus,Urine Occasional /LPF (Occasional); Nitrite,Urine Negative (Negative); Protein,Urine Negative; RBC,Urine <1 /HPF (0-4); Urine Color Yellow (Yellow); Urine Specific Gravity 1.035 (1.001-1.035); Urine Urobilinogen < 2.0 EU/DL (0.2-1.0); WBC,Urine <1 /HPF (0-6)
[2018-07-09] MEDS ORDERED: MAGNESIUM SULF RIDER 2 GM in PREMIX 1 EACH IV STA (19:33)
[2018-07-09] MEDS ORDERED: HYDROmorphone 2 MG/1 ML VIAL IV ONE (20:54)
[2018-07-10] MEDS: SODIUM CHLORIDE 0.9% 1,000 ML IV SCH (01:25)
[2018-07-10] MEDS: metroNIDAZOLE INJ 500 MG in PREMIX 1 EACH IV SCH ×4 (01:39→18:10)
[2018-07-10] MEDS: DIPHENOXYLATE/ATROPINE 2.5-0.025 MG TABLET PO SCH ×4 (01:48→18:09)
[2018-07-10] MEDS: LEVOFLOXACIN INJ 500 MG in PREMIX 1 EACH IV SCH (02:15)
[2018-07-10] MEDS: HYDROmorphone 2 MG/1 ML VIAL IV PRN ×7 (02:49→23:28)
[2018-07-10 06:49] LABS: Basophils # 0.1 10*3/uL (0.0-0.2); Basophils % 0.9 % (0.0-0.8); Eosinophils # 0.7 10*3/uL (0.0-0.87); Eosinophils % 7.2 % (0.00-10.9); Hematocrit 35.1 VOL% (42.0-52.0); Hemoglobin 11.5 GM/DL (14.0-18.0); Immature Granulocytes % 0.6 %; Immature Granulocytes Absolute 0.05 #; Lymphocytes # 2.3 10*3/uL (1.4-4.0); Lymphocytes % 25.7 % (21.2-54.2); Mean Corpuscular HGB Conc 32.8 GM/DL (32-36); Mean Corpuscular Hemoglobin 31 PG (27-34); Mean Corpuscular Volume 94.9 FL (87-102); Mean Platelet Volume 10.3 FL (9.6-12.0); Monocytes # 0.7 10*3/uL (0.11-0.8); Monocytes % 8.2 % (1.7-12.7); Neutrophils # 5.2 10*3/uL (1.4-7.4); Neutrophils % 57.4 % (38.7-73.9); Platelet Count 233 T/CUMM (130-400); Red Cell Distribution Width 13.8 % (9.3-17.3)
[2018-07-10 06:54] LABS: INR 1.1; PT Patient Result 12.4 SECS
[2018-07-10] MEDS: PROCHLORPERAZINE 10 MG TABLET PO PRN ×2 (07:04→13:05)
[2018-07-10] MEDS: DICYCLOMINE 10 MG CAPSULE PO SCH ×4 (08:09→21:59)
[2018-07-10] MEDS: METOPROLOL SUCCINATE XL 25 MG TABLET PO SCH (08:09)
[2018-07-10] MEDS: MINOXIDIL 10 MG TABLET PO SCH (08:09)
[2018-07-10] MEDS: oxyCODONE/ACETAMINOPHEN 5-325 MG TABLET PO SCH ×3 (08:09→21:59)
[2018-07-10] MEDS: PANTOPRAZOLE 40 MG VIAL IV SCH ×2 (10:05→21:59)
[2018-07-10] MEDS: NICOTINE 14 MG/24 HR PATCH TRANSDERM SCH (16:13)
[2018-07-10] MEDS ORDERED: WARFARIN 2.5 MG TABLET PO SCH (18:00)
[2018-07-11] MEDS: metroNIDAZOLE INJ 500 MG in PREMIX 1 EACH IV SCH ×4 (01:15→20:45)
[2018-07-11] MEDS: LEVOFLOXACIN INJ 500 MG in PREMIX 1 EACH IV SCH (03:17)
[2018-07-11] MEDS: HYDROmorphone 2 MG/1 ML VIAL IV PRN ×5 (03:17→23:55)
[2018-07-11] MEDS: SODIUM CHLORIDE 0.9% 1,000 ML IV SCH ×3 (05:23→17:10)
[2018-07-11] MEDS: DIPHENOXYLATE/ATROPINE 2.5-0.025 MG TABLET PO SCH ×5 (05:28→20:50)
[2018-07-11 06:05] LABS: Basophils # 0.1 10*3/uL (0.0-0.2); Basophils % 0.9 % (0.0-0.8); Eosinophils # 0.7 10*3/uL (0.0-0.87); Eosinophils % 7.6 % (0.00-10.9); Hematocrit 35.9 VOL% (42.0-52.0); Hemoglobin 11.9 GM/DL (14.0-18.0); Immature Granulocytes % 0.4 %; Immature Granulocytes Absolute 0.04 #; Lymphocytes # 2.6 10*3/uL (1.4-4.0); Lymphocytes % 28.2 % (21.2-54.2); Mean Corpuscular HGB Conc 33.1 GM/DL (32-36); Mean Corpuscular Hemoglobin 31 PG (27-34); Mean Corpuscular Volume 94.7 FL (87-102); Mean Platelet Volume 10.2 FL (9.6-12.0); Monocytes # 0.8 10*3/uL (0.11-0.8); Neutrophils % 53.9 % (38.7-73.9); Platelet Count 260 T/CUMM (130-400); Red Blood Count 3.79 MC/CUMM (3.8-5.5); Red Cell Distribution Width 13.9 % (9.3-17.3); White Blood Count 9.3 T/CUMM (4-12)
[2018-07-11 06:11] LABS: INR 1.1; PT Patient Result 12.1 SECS
[2018-07-11 06:35] LABS: Albumin 1.6 G/DL (3.4-5.0); Bilirubin,Total 0.6 MG/DL (0.2-1.0); Calcium 7.2 MG/DL (8.5-10.1); Osmolality,Calculated 271.5 MOS/KG (273-304); Potassium 3.5 MMOL/L (3.5-5.1); Total Protein 4.6 G/DL (6.4-8.3)
[2018-07-11] MEDS ORDERED: PROPOFOL 200 MG/20 ML VIAL IV ONE (07:13)
[2018-07-11] MEDS ORDERED: LIDOCAINE 2% 5 ML VIAL ONE (07:13)
[2018-07-11] MEDS: METOPROLOL SUCCINATE XL 25 MG TABLET PO SCH (09:01)
[2018-07-11] MEDS: NICOTINE 14 MG/24 HR PATCH TRANSDERM SCH (09:01)
[2018-07-11] MEDS: MINOXIDIL 10 MG TABLET PO SCH (09:02)
[2018-07-11] MEDS: DICYCLOMINE 10 MG CAPSULE PO SCH ×4 (09:02→21:45)
[2018-07-11] MEDS: oxyCODONE/ACETAMINOPHEN 5-325 MG TABLET PO SCH ×2 (09:02→20:46)
[2018-07-11] MEDS: PANTOPRAZOLE 40 MG VIAL IV SCH ×2 (09:05→20:46)
[2018-07-11] MEDS ORDERED: MAGNESIUM SULF RIDER 4 GM in PREMIX 1 EACH IV PRN (10:06)
[2018-07-11] MEDS ORDERED: MAGNESIUM SULF RIDER 2 GM in PREMIX 1 EACH IV PRN (10:06)
[2018-07-11] MEDS ORDERED: AMITRIPTYLINE 25 MG TABLET PO PRN (10:14)
[2018-07-11] MEDS: METOCLOPRAMIDE 10 MG/10 ML UDCUP PO SCH ×3 (13:03→20:46)
[2018-07-11] MEDS ORDERED: WARFARIN 5 MG TABLET PO SCH (18:00)
[2018-07-11] MEDS ORDERED: AMITRIPTYLINE 50 MG TABLET PO SCH (21:00)
[2018-07-12] MEDS: DIPHENOXYLATE/ATROPINE 2.5-0.025 MG TABLET PO SCH ×3 (01:14→12:46)
[2018-07-12] MEDS: metroNIDAZOLE INJ 500 MG in PREMIX 1 EACH IV SCH ×3 (01:20→15:03)
[2018-07-12] MEDS: LEVOFLOXACIN INJ 500 MG in PREMIX 1 EACH IV SCH (02:39)
[2018-07-12 06:08] LABS: Basophils # 0.1 10*3/uL (0.0-0.2); Basophils % 0.8 % (0.0-0.8); Eosinophils # 0.9 10*3/uL (0.0-0.87); Eosinophils % 14.6 % (0.00-10.9); Hemoglobin 10.5 GM/DL (14.0-18.0); Immature Granulocytes % 0.8 %; Immature Granulocytes Absolute 0.05 #; Lymphocytes % 33.5 % (21.2-54.2); Mean Corpuscular HGB Conc 32.8 GM/DL (32-36); Mean Corpuscular Hemoglobin 31 PG (27-34); Mean Platelet Volume 10.3 FL (9.6-12.0); Monocytes # 0.6 10*3/uL (0.11-0.8); Monocytes % 10.4 % (1.7-12.7); Neutrophils # 2.4 10*3/uL (1.4-7.4); Neutrophils % 39.9 % (38.7-73.9); Platelet Count 204 T/CUMM (130-400); Red Blood Count 3.37 MC/CUMM (3.8-5.5); Red Cell Distribution Width 13.8 % (9.3-17.3)
[2018-07-12 06:15] LABS: INR 1.3; PT Patient Result 13.7 SECS
[2018-07-12 06:24] LABS: Osmolality,Calculated 278.1 MOS/KG (273-304); Potassium 3.6 MMOL/L (3.5-5.1)
[2018-07-12 06:35] LABS: Eosinophils 12 % (0-10); Hypochromasia Slight; Lymphocytes 25 % (20-55); Platelet Estimate Normal; Segmented Neutrophils 56 % (50-85); Total Cells Counted 100
[2018-07-12] MEDS: METOCLOPRAMIDE 10 MG/10 ML UDCUP PO SCH (06:37)
[2018-07-12] MEDS: MINOXIDIL 10 MG TABLET PO SCH (08:58)
[2018-07-12] MEDS: METOPROLOL SUCCINATE XL 25 MG TABLET PO SCH (08:58)
[2018-07-12] MEDS: oxyCODONE/ACETAMINOPHEN 5-325 MG TABLET PO SCH (08:59)
[2018-07-12] MEDS: DICYCLOMINE 10 MG CAPSULE PO SCH ×2 (08:59→12:46)
[2018-07-12] MEDS: NICOTINE 14 MG/24 HR PATCH TRANSDERM SCH (08:59)
[2018-07-12] MEDS: PANTOPRAZOLE 40 MG VIAL IV SCH (09:00)
[2018-07-12] MEDS ORDERED: PROCHLORPERAZINE 10 MG TABLET PO PRN (09:00)
[2018-07-12] MEDS ORDERED: HYDROmorphone 2 MG/1 ML VIAL IV PRN (09:01)
[2018-07-12] MEDS: HYDROmorphone 2 MG/1 ML VIAL IV PRN (09:02)
[2018-07-12] MEDS: SODIUM CHLORIDE 0.9% 1,000 ML IV SCH (10:35)
[2018-07-12 15:01] LABS: Collection duration of stool Random h; Total Weight of Stool 6 g
[2018-07-12 16:37] VITALS: BP 135/66
[2018-07-12] MEDS ORDERED: PANTOPRAZOLE 40 MG TABLET PO SCH (19:00)
== END 2018-07-12 16:45 | disposition home or self-care (01) | DRG 254 ==
LOC: EDBD → EDUNIT# → N.ED 15:18 → N.EDINP 07-10 00:16 → SUATTDRO 07-10 00:16 → N.5E 07-10 00:52
PROVIDERS: ADMIT Emergency Medicine; ATTEND Emergency Medicine

== ENCOUNTER 2018-11-21 05:58 | Inpatient (IN) ==
[2018-11-21] MEDS ORDERED: HYDROmorphone 2 MG/1 ML VIAL IV STA (07:34)
[2018-11-21] MEDS ORDERED: SODIUM CHLORIDE 0.9% 500 ML IV STA (07:34)
[2018-11-21] MEDS ORDERED: ONDANSETRON 4 MG/2 ML VIAL IV STA (07:34)
[2018-11-21 08:42] LABS: Apearance,Urine CLEAR (Clear); Bilirubin,Urine Negative (Negative); Blood, Urine Negative (Negative); Glucose,Urine (UA) Negative (Negative); Ketones,Urine Negative (Negative); Mucus,Urine Many /LPF (Occasional); Nitrite,Urine Negative (Negative); Protein,Urine Negative; RBC,Urine 1 /HPF (0-4); Urine Color Yellow (Yellow); Urine Specific Gravity 1.031 (1.001-1.035); Urine Urobilinogen < 2.0 EU/DL (0.2-1.0); WBC,Urine <1 /HPF (0-6)
[2018-11-21 08:48] LABS: Basophils % 0.2 % (0.0-0.8); Eosinophils % 0.1 % (0.00-10.9); Hematocrit 35.7 VOL% (42.0-52.0); Hemoglobin 11.3 GM/DL (14.0-18.0); Immature Granulocytes % 0.2 %; Immature Granulocytes Absolute 0.02 #; Lymphocytes # 0.6 10*3/uL (1.4-4.0); Lymphocytes % 6.6 % (21.2-54.2); Mean Corpuscular HGB Conc 31.7 GM/DL (32-36); Mean Corpuscular Volume 100.6 FL (87-102); Mean Platelet Volume 10.5 FL (9.6-12.0); Neutrophils % 88.9 % (38.7-73.9); Platelet Count 217 T/CUMM (130-400); Red Blood Count 3.55 MC/CUMM (3.8-5.5); Red Cell Distribution Width 14.7 % (9.3-17.3); White Blood Count 8.5 T/CUMM (4-12)
[2018-11-21 09:15] LABS: Albumin 1.8 G/DL (3.4-5.0); Bilirubin,Total 1.1 MG/DL (0.2-1.0); Calcium 7.2 MG/DL (8.5-10.1); Osmolality,Calculated 276.3 MOS/KG (273-304); Total Protein 4.6 G/DL (6.4-8.3)
[2018-11-21] MEDS ORDERED: ONDANSETRON 4 MG/2 ML VIAL IV PRN (09:44)
[2018-11-21] MEDS ORDERED: ACETAMINOPHEN 325 MG TABLET PO PRN (09:44)
[2018-11-21] MEDS ORDERED: PROMETHAZINE 25 MG/1 ML VIAL IM PRN (09:44)
[2018-11-21] MEDS ORDERED: POTASSIUM CHLORIDE 20 MEQ TABLET PO STA (09:47)
[2018-11-21] MEDS ORDERED: MAGNESIUM SULF RIDER 2 GM in PREMIX 1 EACH IV STA (09:50)
[2018-11-21] MEDS ORDERED: PROCHLORPERAZINE 10 MG TABLET PO PRN (09:50)
[2018-11-21] MEDS ORDERED: CYCLOBENZAPRINE 10 MG TABLET PO PRN (09:50)
[2018-11-21] MEDS: CIPROFLOXACIN INJ 400 MG in PREMIX 1 EACH IV SCH (12:20)
[2018-11-21] MEDS: PANTOPRAZOLE 40 MG TABLET PO SCH ×2 (12:21→21:29)
[2018-11-21] MEDS: DIPHENOXYLATE/ATROPINE 2.5-0.025 MG TABLET PO SCH ×2 (12:49→18:27)
[2018-11-21] MEDS: METOPROLOL SUCCINATE XL 25 MG TABLET PO SCH (12:52)
[2018-11-21] MEDS: DICYCLOMINE 10 MG CAPSULE PO SCH ×3 (12:52→21:28)
[2018-11-21] MEDS: metroNIDAZOLE INJ 500 MG in PREMIX 1 EACH IV SCH ×2 (14:32→21:29)
[2018-11-21] MEDS ORDERED: MORPHINE 4 MG/1 ML VIAL IV PRN (14:33)
[2018-11-21] MEDS: ALBUMIN 25% 50 GM in PREMIX 1 EACH IV ONE ×2 (15:37→16:19)
[2018-11-21] MEDS: DEXTROSE 5% NACL 0.45% 1,000 ML IV SCH (15:38)
[2018-11-21] MEDS: GABAPENTIN 100 MG CAPSULE PO SCH ×2 (16:19→21:28)
[2018-11-21 16:41] LABS: INR 1.4; PT Patient Result 15.1 SECS; Partial Thromboplastin Time 26.8 SECS (0-40)
[2018-11-21] MEDS: WARFARIN 2.5 MG TABLET PO SCH (17:20)
[2018-11-21] MEDS: oxyCODONE/ACETAMINOPHEN 5-325 MG TABLET PO SCH (21:28)
[2018-11-21] MEDS: AMITRIPTYLINE 50 MG TABLET PO SCH (21:29)
[2018-11-21] MEDS: MIRTAZAPINE 30 MG TABLET PO SCH (21:29)
[2018-11-21] MEDS: MORPHINE 4 MG/1 ML VIAL IV PRN (22:47)
[2018-11-22] MEDS: CIPROFLOXACIN INJ 400 MG in PREMIX 1 EACH IV SCH ×2 (01:00→12:38)
[2018-11-22] MEDS: DIPHENOXYLATE/ATROPINE 2.5-0.025 MG TABLET PO SCH ×4 (01:00→17:17)
[2018-11-22 05:17] LABS: Basophils % 0.3 % (0.0-0.8); Eosinophils # 0.1 10*3/uL (0.0-0.87); Eosinophils % 0.7 % (0.00-10.9); Hematocrit 36.6 VOL% (42.0-52.0); Hemoglobin 11.6 GM/DL (14.0-18.0); Immature Granulocytes % 0.4 %; Immature Granulocytes Absolute 0.04 #; Lymphocytes # 1.6 10*3/uL (1.4-4.0); Lymphocytes % 15.7 % (21.2-54.2); Mean Corpuscular HGB Conc 31.7 GM/DL (32-36); Mean Corpuscular Volume 100.3 FL (87-102); Mean Platelet Volume 11.1 FL (9.6-12.0); Monocytes % 4.9 % (1.7-12.7); Platelet Count 205 T/CUMM (130-400); Red Blood Count 3.65 MC/CUMM (3.8-5.5); Red Cell Distribution Width 14.9 % (9.3-17.3); White Blood Count 9.9 T/CUMM (4-12)
[2018-11-22 05:39] LABS: Anisocytosis Slight; Macrocytosis Slight; Polychromasia Slight; Target Cells Slight
[2018-11-22 05:40] LABS: Burr Cells Few; Platelet Estimate Normal
[2018-11-22 05:41] LABS: Alanine Aminotransferase 45 U/L (16-61); Albumin 1.6 G/DL (3.4-5.0); Alkaline Phosphatase 191 U/L (45-117); Aspartate Amino Transferase 55 U/L (0-37); Blood Urea Nitrogen 7 MG/DL (7-18); Calcium 7.4 MG/DL (8.5-10.1); Glucose 82 MG/DL (74-106); HDL Cholesterol 21 MG/DL (40-60); Osmolality,Calculated 275.4 MOS/KG (273-304); Risk Ratio 2.38; Total Protein 4.5 G/DL (6.4-8.3); Triglycerides 37 MG/DL (2-150); VLDL CHOLESTEROL 7.4 MG/DL
[2018-11-22 07:04] LABS: INR 1.8; PT Patient Result 19.5 SECS; Partial Thromboplastin Time 34.1 SECS (0-40)
[2018-11-22] MEDS: oxyCODONE/ACETAMINOPHEN 5-325 MG TABLET PO SCH ×2 (09:52→21:29)
[2018-11-22] MEDS: metroNIDAZOLE INJ 500 MG in PREMIX 1 EACH IV SCH ×2 (09:52→17:16)
[2018-11-22] MEDS: PANTOPRAZOLE 40 MG TABLET PO SCH ×2 (09:52→21:26)
[2018-11-22] MEDS: GABAPENTIN 100 MG CAPSULE PO SCH ×3 (09:52→21:25)
[2018-11-22] MEDS: METOPROLOL SUCCINATE XL 25 MG TABLET PO SCH (09:52)
[2018-11-22] MEDS: DICYCLOMINE 10 MG CAPSULE PO SCH ×4 (09:52→21:26)
[2018-11-22] MEDS: DEXTROSE 5% NACL 0.45% 1,000 ML IV SCH ×2 (09:54)
[2018-11-22 10:30] LABS: Neutrophils,Peritoneal Fluid 95 %; RBC,Peritoneal Fluid < 1 T/CUMM
[2018-11-22] MEDS ORDERED: ALBUMIN 25% 50 GM in PREMIX 1 EACH IV ONE (11:00)
[2018-11-22 11:34] LABS: LDH,Body Fluid 37 U/L; Total Protein,Body Fluid < 1.0 G/DL
[2018-11-22] MEDS: MORPHINE 4 MG/1 ML VIAL IV PRN ×2 (13:56→18:52)
[2018-11-22] MEDS: SPIRONOLACTONE 25 MG TABLET PO SCH ×2 (17:06→21:26)
[2018-11-22] MEDS: FUROSEMIDE 40 MG TABLET PO SCH (17:06)
[2018-11-22] MEDS: WARFARIN 2.5 MG TABLET PO SCH (17:16)
[2018-11-22] MEDS: AMITRIPTYLINE 50 MG TABLET PO SCH (21:25)
[2018-11-22] MEDS: MIRTAZAPINE 30 MG TABLET PO SCH (21:25)
[2018-11-23] MEDS: MORPHINE 4 MG/1 ML VIAL IV PRN ×2 (00:01→04:24)
[2018-11-23] MEDS: CIPROFLOXACIN INJ 400 MG in PREMIX 1 EACH IV SCH ×2 (00:26→13:27)
[2018-11-23] MEDS: DIPHENOXYLATE/ATROPINE 2.5-0.025 MG TABLET PO SCH ×3 (01:15→12:15)
[2018-11-23] MEDS: metroNIDAZOLE INJ 500 MG in PREMIX 1 EACH IV SCH ×2 (01:57→09:44)
[2018-11-23 06:04] LABS: Basophils % 0.2 % (0.0-0.8); Eosinophils # 0.2 10*3/uL (0.0-0.87); Eosinophils % 2.5 % (0.00-10.9); Hematocrit 30.4 VOL% (42.0-52.0); Hemoglobin 9.7 GM/DL (14.0-18.0); Immature Granulocytes % 0.6 %; Immature Granulocytes Absolute 0.04 #; Lymphocytes # 1.2 10*3/uL (1.4-4.0); Lymphocytes % 18.6 % (21.2-54.2); Mean Corpuscular HGB Conc 31.9 GM/DL (32-36); Mean Corpuscular Volume 99.3 FL (87-102); Mean Platelet Volume 11.1 FL (9.6-12.0); Monocytes % 10.2 % (1.7-12.7); Neutrophils % 67.9 % (38.7-73.9); Red Blood Count 3.06 MC/CUMM (3.8-5.5); Red Cell Distribution Width 14.9 % (9.3-17.3)
[2018-11-23 06:06] LABS: White Blood Count 6.3 T/CUMM (4-12)
[2018-11-23 06:07] LABS: Platelet Count 160 T/CUMM (130-400)
[2018-11-23 06:39] LABS: Calcium 7.7 MG/DL (8.5-10.1); Osmolality,Calculated 276.3 MOS/KG (273-304)
[2018-11-23] MEDS: FUROSEMIDE 40 MG TABLET PO SCH (08:37)
[2018-11-23] MEDS: PANTOPRAZOLE 40 MG TABLET PO SCH (08:37)
[2018-11-23] MEDS: SPIRONOLACTONE 25 MG TABLET PO SCH (08:37)
[2018-11-23] MEDS: METOPROLOL SUCCINATE XL 25 MG TABLET PO SCH (08:37)
[2018-11-23] MEDS: GABAPENTIN 100 MG CAPSULE PO SCH (08:37)
[2018-11-23] MEDS: DICYCLOMINE 10 MG CAPSULE PO SCH ×2 (08:37→12:11)
[2018-11-23] MEDS: oxyCODONE/ACETAMINOPHEN 5-325 MG TABLET PO SCH (08:37)
[2018-11-23 11:06] VITALS: BP 129/85
== END 2018-11-23 13:10 | disposition home or self-care (01) | DRG 254 ==
LOC: N.ED 05:58 → N.EDINP 05:58 → N.3E 13:52
PROVIDERS: ADMIT Emergency Medicine; ATTEND Emergency Medicine

== ENCOUNTER 2018-12-03 17:57 | Inpatient (IN) ==
[2018-12-03 19:11] LABS: Basophils # 0.1 10*3/uL (0.0-0.2); Basophils % 0.9 % (0.0-0.8); Eosinophils # 0.2 10*3/uL (0.0-0.87); Eosinophils % 1.5 % (0.00-10.9); Hematocrit 35.3 VOL% (42.0-52.0); Immature Granulocytes % 0.5 %; Immature Granulocytes Absolute 0.07 #; Lymphocytes # 2.6 10*3/uL (1.4-4.0); Lymphocytes % 20.4 % (21.2-54.2); Mean Corpuscular HGB Conc 31.2 GM/DL (32-36); Mean Platelet Volume 9.6 FL (9.6-12.0); Monocytes % 7.2 % (1.7-12.7); Neutrophils % 69.5 % (38.7-73.9); Platelet Count 471 T/CUMM (130-400); Red Blood Count 3.46 MC/CUMM (3.8-5.5); Red Cell Distribution Width 16.9 % (9.3-17.3); White Blood Count 12.8 T/CUMM (4-12)
[2018-12-03 19:41] LABS: Albumin 2.2 G/DL (3.4-5.0); Bilirubin,Total 0.6 MG/DL (0.2-1.0); Calcium 7.4 MG/DL (8.5-10.1); Osmolality,Calculated 282.8 MOS/KG (273-304); Total Protein 5.2 G/DL (6.4-8.3)
[2018-12-03] MEDS ORDERED: SODIUM CHLORIDE 0.9% 1,000 ML IV STA (20:41)
[2018-12-03] MEDS ORDERED: HYDROmorphone 2 MG/1 ML VIAL IV STA (20:41)
[2018-12-03] MEDS ORDERED: PANTOPRAZOLE 40 MG VIAL IV STA (20:41)
[2018-12-03] MEDS ORDERED: PROMETHAZINE 25 MG/1 ML VIAL IM STA (20:41)
[2018-12-03] MEDS ORDERED: VANCOMYCIN INJ 1,000 MG in SODIUM CHLORIDE 0.9% 250 ML IV STA (22:23)
[2018-12-04] MEDS ORDERED: ACETAMINOPHEN 325 MG TABLET PO PRN (00:25)
[2018-12-04] MEDS ORDERED: NICOTINE 21 MG/24 HR PATCH TRANSDERM PRN (00:25)
[2018-12-04] MEDS ORDERED: PROCHLORPERAZINE 10 MG TABLET PO PRN (00:35)
[2018-12-04] MEDS ORDERED: CYCLOBENZAPRINE 10 MG TABLET PO PRN (00:35)
[2018-12-04] MEDS: DEXTROSE 5% NACL 0.45% 1,000 ML IV SCH ×3 (04:08→19:36)
[2018-12-04] MEDS: HYDROmorphone 2 MG/1 ML VIAL IV PRN ×6 (04:29→22:41)
[2018-12-04] MEDS: metroNIDAZOLE INJ 500 MG in PREMIX 1 EACH IV SCH ×4 (04:35→21:18)
[2018-12-04 04:45] LABS: Basophils # 0.1 10*3/uL (0.0-0.2); Basophils % 1.2 % (0.0-0.8); Eosinophils # 0.4 10*3/uL (0.0-0.87); Eosinophils % 3.4 % (0.00-10.9); Hemoglobin 10.5 GM/DL (14.0-18.0); Immature Granulocytes % 0.5 %; Immature Granulocytes Absolute 0.05 #; Lymphocytes # 3.4 10*3/uL (1.4-4.0); Lymphocytes % 30.6 % (21.2-54.2); Mean Corpuscular HGB Conc 31.8 GM/DL (32-36); Mean Corpuscular Volume 100.3 FL (87-102); Mean Platelet Volume 9.8 FL (9.6-12.0); Monocytes % 7.6 % (1.7-12.7); Neutrophils % 56.7 % (38.7-73.9); Platelet Count 403 T/CUMM (130-400); Red Blood Count 3.29 MC/CUMM (3.8-5.5); Red Cell Distribution Width 17.2 % (9.3-17.3); White Blood Count 11.1 T/CUMM (4-12)
[2018-12-04 05:01] LABS: INR 1.3; PT Patient Result 13.6 SECS; Partial Thromboplastin Time 25.8 SECS (0-40)
[2018-12-04 05:18] LABS: Calcium 7.4 MG/DL (8.5-10.1)
[2018-12-04] MEDS: PANTOPRAZOLE 40 MG TABLET PO SCH ×3 (05:44→21:19)
[2018-12-04] MEDS: CIPROFLOXACIN INJ 400 MG in PREMIX 1 EACH IV SCH ×2 (05:46→14:36)
[2018-12-04] MEDS: DIPHENOXYLATE/ATROPINE 2.5-0.025 MG TABLET PO SCH ×3 (08:57→18:01)
[2018-12-04] MEDS: SPIRONOLACTONE 25 MG TABLET PO SCH ×2 (09:01→21:19)
[2018-12-04] MEDS: ENOXAPARIN 40 MG/0.4 ML SYRINGE SUBCUT SCH (09:01)
[2018-12-04] MEDS: FUROSEMIDE 40 MG TABLET PO SCH (09:01)
[2018-12-04] MEDS: METOPROLOL SUCCINATE XL 25 MG TABLET PO SCH (09:01)
[2018-12-04] MEDS: GABAPENTIN 100 MG CAPSULE PO SCH ×3 (09:01→21:18)
[2018-12-04] MEDS: DICYCLOMINE 10 MG CAPSULE PO SCH ×4 (09:01→21:18)
[2018-12-04 11:59] LABS: Apearance,Urine CLEAR (Clear); Bilirubin,Urine Negative (Negative); Blood, Urine Negative (Negative); Glucose,Urine (UA) Negative (Negative); Ketones,Urine Negative (Negative); Mucus,Urine Occasional /LPF (Occasional); Nitrite,Urine Negative (Negative); Protein,Urine Negative; RBC,Urine 1 /HPF (0-4); Urine Color Straw (Yellow); Urine Specific Gravity 1.009 (1.001-1.035); Urine Urobilinogen < 2.0 EU/DL (0.2-1.0)
[2018-12-04] MEDS ORDERED: WARFARIN 2.5 MG TABLET PO SCH (18:00)
[2018-12-04] MEDS: AMITRIPTYLINE 50 MG TABLET PO SCH (21:19)
[2018-12-04] MEDS: MIRTAZAPINE 30 MG TABLET PO SCH (21:19)
[2018-12-05] MEDS: DIPHENOXYLATE/ATROPINE 2.5-0.025 MG TABLET PO SCH ×5 (00:33→23:50)
[2018-12-05] MEDS: CIPROFLOXACIN INJ 400 MG in PREMIX 1 EACH IV SCH ×2 (03:48→15:50)
[2018-12-05] MEDS: HYDROmorphone 2 MG/1 ML VIAL IV PRN ×6 (04:24→22:25)
[2018-12-05 05:13] LABS: Basophils # 0.1 10*3/uL (0.0-0.2); Basophils % 1.5 % (0.0-0.8); Eosinophils # 0.5 10*3/uL (0.0-0.87); Eosinophils % 5.3 % (0.00-10.9); Hematocrit 32.2 VOL% (42.0-52.0); Hemoglobin 10.3 GM/DL (14.0-18.0); Immature Granulocytes % 0.2 %; Immature Granulocytes Absolute 0.02 #; Lymphocytes # 2.9 10*3/uL (1.4-4.0); Lymphocytes % 30.5 % (21.2-54.2); Mean Corpuscular Volume 102.5 FL (87-102); Mean Platelet Volume 10.1 FL (9.6-12.0); Monocytes % 13.9 % (1.7-12.7); Neutrophils % 48.6 % (38.7-73.9); Platelet Count 356 T/CUMM (130-400); Red Blood Count 3.14 MC/CUMM (3.8-5.5); Red Cell Distribution Width 16.7 % (9.3-17.3); White Blood Count 9.6 T/CUMM (4-12)
[2018-12-05] MEDS: metroNIDAZOLE INJ 500 MG in PREMIX 1 EACH IV SCH ×4 (05:15→21:05)
[2018-12-05 05:32] LABS: INR 1.4; PT Patient Result 15.4 SECS; Partial Thromboplastin Time 30.4 SECS (0-40)
[2018-12-05 05:42] LABS: % Iron Saturation 37.4 % (18-50); Calcium 7.3 MG/DL (8.5-10.1); Osmolality,Calculated 275.4 MOS/KG (273-304)
[2018-12-05 06:50] LABS: Hepatitis B Core IgM Quant 0.05 Index; Hepatitis B Surface Ag Quant < 0.10 Index; Hepatitis B Surface Ag Result Negative (Negative); Hepatitis C Virus Ab Quant 0.07 Index; Hepatitis C Virus Ab Result Negative (Negative)
[2018-12-05] MEDS: ENOXAPARIN 40 MG/0.4 ML SYRINGE SUBCUT SCH (09:06)
[2018-12-05] MEDS: SPIRONOLACTONE 25 MG TABLET PO SCH ×2 (09:07→20:30)
[2018-12-05] MEDS: DICYCLOMINE 10 MG CAPSULE PO SCH ×4 (09:07→20:30)
[2018-12-05] MEDS: FUROSEMIDE 40 MG TABLET PO SCH (09:14)
[2018-12-05] MEDS: GABAPENTIN 100 MG CAPSULE PO SCH ×3 (09:14→20:30)
[2018-12-05] MEDS: PANTOPRAZOLE 40 MG TABLET PO SCH ×2 (09:15→20:30)
[2018-12-05] MEDS: METOPROLOL SUCCINATE XL 25 MG TABLET PO SCH (09:16)
[2018-12-05] MEDS: DEXTROSE 5% NACL 0.45% 1,000 ML IV SCH ×2 (09:17→20:32)
[2018-12-05 11:14] LABS: Folate 18.4 NG/ML (5.4-24.0)
[2018-12-05 11:32] LABS: HDL Cholesterol 13 MG/DL (40-60); Risk Ratio 3.85; Triglycerides 40 MG/DL (2-150)
[2018-12-05] MEDS: AMITRIPTYLINE 50 MG TABLET PO SCH (20:30)
[2018-12-05] MEDS: MIRTAZAPINE 30 MG TABLET PO SCH (20:30)
[2018-12-06] MEDS: CIPROFLOXACIN INJ 400 MG in PREMIX 1 EACH IV SCH ×2 (03:31→17:13)
[2018-12-06 04:44] LABS: Basophils # 0.1 10*3/uL (0.0-0.2); Basophils % 1.2 % (0.0-0.8); Eosinophils # 0.4 10*3/uL (0.0-0.87); Eosinophils % 4.3 % (0.00-10.9); Hematocrit 30.1 VOL% (42.0-52.0); Hemoglobin 9.8 GM/DL (14.0-18.0); Immature Granulocytes % 0.4 %; Immature Granulocytes Absolute 0.03 #; Lymphocytes # 2.1 10*3/uL (1.4-4.0); Lymphocytes % 24.9 % (21.2-54.2); Mean Corpuscular HGB Conc 32.6 GM/DL (32-36); Mean Corpuscular Volume 98.7 FL (87-102); Mean Platelet Volume 11.7 FL (9.6-12.0); Neutrophils % 60.2 % (38.7-73.9); Platelet Count 231 T/CUMM (130-400); Red Blood Count 3.05 MC/CUMM (3.8-5.5); Red Cell Distribution Width 16.1 % (9.3-17.3); White Blood Count 8.5 T/CUMM (4-12)
[2018-12-06 05:12] LABS: Calcium 7.4 MG/DL (8.5-10.1); Osmolality,Calculated 278.3 MOS/KG (273-304)
[2018-12-06] MEDS: DEXTROSE 5% NACL 0.45% 1,000 ML IV SCH (05:16)
[2018-12-06] MEDS: DIPHENOXYLATE/ATROPINE 2.5-0.025 MG TABLET PO SCH ×2 (05:16→13:21)
[2018-12-06] MEDS: metroNIDAZOLE INJ 500 MG in PREMIX 1 EACH IV SCH ×3 (05:16→17:14)
[2018-12-06] MEDS: HYDROmorphone 2 MG/1 ML VIAL IV PRN ×3 (05:23→13:22)
[2018-12-06] MEDS: GABAPENTIN 100 MG CAPSULE PO SCH ×2 (09:48→17:14)
[2018-12-06] MEDS: METOPROLOL SUCCINATE XL 25 MG TABLET PO SCH (09:48)
[2018-12-06] MEDS: DICYCLOMINE 10 MG CAPSULE PO SCH ×2 (09:48→13:21)
[2018-12-06] MEDS: SPIRONOLACTONE 25 MG TABLET PO SCH (09:49)
[2018-12-06] MEDS: ENOXAPARIN 40 MG/0.4 ML SYRINGE SUBCUT SCH (09:49)
[2018-12-06] MEDS: PANTOPRAZOLE 40 MG TABLET PO SCH (09:49)
[2018-12-06] MEDS: FUROSEMIDE 40 MG TABLET PO SCH (09:49)
[2018-12-06 16:20] VITALS: BP 85/64
== END 2018-12-06 16:45 | disposition home or self-care (01) | DRG 249 ==
LOC: N.ED 17:57 → N.EDINP 12-04 00:25 → N.4E 12-04 02:33
PROVIDERS: ADMIT Internal Medicine; ATTEND Internal Medicine

== ENCOUNTER 2019-01-17 15:16 | Inpatient (IN) ==
[2019-01-17] MEDS ORDERED: HYDROmorphone 2 MG/1 ML VIAL IV STA (16:27)
[2019-01-17] MEDS ORDERED: PROMETHAZINE 25 MG/1 ML VIAL IM STA (16:29)
[2019-01-17 17:08] LABS: Basophils % 0.1 % (0.0-0.8); Eosinophils % 0.1 % (0.00-10.9); Hematocrit 35.4 VOL% (42.0-52.0); Hemoglobin 11.5 GM/DL (14.0-18.0); Immature Granulocytes % 0.2 %; Immature Granulocytes Absolute 0.02 #; Lymphocytes % 23.1 % (21.2-54.2); Mean Corpuscular HGB Conc 32.5 GM/DL (32-36); Mean Corpuscular Volume 94.1 FL (87-102); Mean Platelet Volume 10.6 FL (9.6-12.0); Monocytes % 6.8 % (1.7-12.7); Neutrophils % 69.7 % (38.7-73.9); Platelet Count 227 T/CUMM (130-400); Red Blood Count 3.76 MC/CUMM (3.8-5.5); Red Cell Distribution Width 16.7 % (9.3-17.3); White Blood Count 8.5 T/CUMM (4-12)
[2019-01-17 17:24] LABS: Alanine Aminotransferase 36 U/L (16-61); Albumin 1.5 G/DL (3.4-5.0); Alkaline Phosphatase 245 U/L (45-117); Aspartate Amino Transferase 37 U/L (0-37); Blood Urea Nitrogen 16 MG/DL (7-18); Glucose 87 MG/DL (74-106); Osmolality,Calculated 280.3 MOS/KG (273-304); Total Protein 4.8 G/DL (6.4-8.3)
[2019-01-17] MEDS ORDERED: SODIUM CHLORIDE 0.9% 1,000 ML IV STA (17:39)
[2019-01-17] MEDS ORDERED: ZALEPLON 5 MG CAPSULE PO PRN (19:52)
[2019-01-17] MEDS ORDERED: hydrALAZINE 20 MG/1 ML VIAL IV PRN (19:58)
[2019-01-17] MEDS: MEROPENEM 1,000 MG in SODIUM CHLORIDE 0.9% 100 ML IV SCH (20:47)
[2019-01-17] MEDS: FUROSEMIDE 40 MG/4 ML VIAL IV SCH (20:47)
[2019-01-17] MEDS: MORPHINE 4 MG/1 ML VIAL IV PRN (23:20)
[2019-01-17] MEDS ORDERED: SODIUM CHLORIDE 0.9% 250 ML IV ONE (23:29)
[2019-01-17] MEDS ORDERED: METOPROLOL TARTRATE 5 MG/5 ML VIAL IV ONE (23:47)
[2019-01-17] MEDS: AMITRIPTYLINE 50 MG TABLET PO SCH (23:59)
[2019-01-18] MEDS: VANCOMYCIN INJ 1,000 MG in SODIUM CHLORIDE 0.9% 250 ML IV SCH ×2 (00:45→13:00)
[2019-01-18] MEDS ORDERED: SODIUM CHLORIDE 0.9% 500 ML IV ONE (00:56)
[2019-01-18 01:57] LABS: Basophils % 0.3 % (0.0-0.8); Hematocrit 33.4 VOL% (42.0-52.0); Hemoglobin 10.6 GM/DL (14.0-18.0); Immature Granulocytes % 0.2 %; Immature Granulocytes Absolute 0.01 #; Lymphocytes # 0.7 10*3/uL (1.4-4.0); Lymphocytes % 11.6 % (21.2-54.2); Mean Corpuscular HGB Conc 31.7 GM/DL (32-36); Mean Corpuscular Volume 96.5 FL (87-102); Mean Platelet Volume 10.4 FL (9.6-12.0); Monocytes % 10.6 % (1.7-12.7); Neutrophils % 77.3 % (38.7-73.9); Platelet Count 162 T/CUMM (130-400); Red Blood Count 3.46 MC/CUMM (3.8-5.5)
[2019-01-18 02:23] LABS: Albumin 1.2 G/DL (3.4-5.0); Bilirubin,Total 0.9 MG/DL (0.2-1.0); Calcium 6.7 MG/DL (8.5-10.1); Osmolality,Calculated 279.3 MOS/KG (273-304)
[2019-01-18 02:25] LABS: Anisocytosis 1+; Band Neutrophils 3 % (0-10); Hypochromasia 1+; Lymphocytes 14 % (20-55); Macrocytosis Slight; Microcytosis 1+; Platelet Estimate Adequate; Polychromasia 1+; Segmented Neutrophils 81 % (50-85); Smudge Cells 1+; Total Cells Counted 100
[2019-01-18] MEDS: MEROPENEM 1,000 MG in SODIUM CHLORIDE 0.9% 100 ML IV SCH ×3 (05:04→23:59)
[2019-01-18 08:11] LABS: INR 2.9
[2019-01-18 08:12] LABS: PT Patient Result 30.7 SECS
[2019-01-18] MEDS ORDERED: SODIUM CHLORIDE 0.9% 2,100 ML IV ONE (08:49)
[2019-01-18] MEDS ORDERED: PANTOPRAZOLE 40 MG TABLET PO SCH (09:00)
[2019-01-18] MEDS ORDERED: SODIUM CHLORIDE 0.9% 1,000 ML IV PRN (09:11)
[2019-01-18] MEDS: FUROSEMIDE 40 MG/4 ML VIAL IV SCH (12:30)
[2019-01-18] MEDS ORDERED: PHYTONADIONE INJ 5 MG in SODIUM CHLORIDE 0.9% 50 ML IV ONE (13:41)
[2019-01-18] MEDS: PANTOPRAZOLE 40 MG TABLET PO SCH ×2 (14:00→23:54)
[2019-01-18] MEDS ORDERED: ALBUMIN 25% 50 GM in PREMIX 1 EACH IV ONE (14:03)
[2019-01-18 14:24] LABS: INR 2.4
[2019-01-18 14:29] LABS: PT Patient Result 25.9 SECS
[2019-01-18 15:30] LABS: Calcium 6.6 MG/DL (8.5-10.1); Osmolality,Calculated 275.4 MOS/KG (273-304)
[2019-01-18] MEDS ORDERED: DEXTROSE 10% 250 ML IV ONE (15:45)
[2019-01-18] MEDS: oxyCODONE/ACETAMINOPHEN 5-325 MG TABLET PO SCH ×2 (16:17→23:53)
[2019-01-18] MEDS: METOPROLOL SUCCINATE XL 25 MG TABLET PO SCH (16:42)
[2019-01-18] MEDS ORDERED: MAGNESIUM SULF RIDER 2 GM in PREMIX 1 EACH IV ONE (17:00)
[2019-01-18] MEDS: POLYETHYLENE GLYCOL POWDER 17 GM PACK PO SCH ×2 (17:10→23:54)
[2019-01-18] MEDS: DEXTROSE 10% 250 ML IV PRN (19:26)
[2019-01-18] MEDS: MORPHINE 4 MG/1 ML VIAL IV PRN (19:27)
[2019-01-18 19:30] LABS: ABG Base Excess -4.7 MMOL/L (-2.5-2.5); ABG HCO3 20.5 MMOL/L (20-26); ABG PCO2 36.7 MM HG (35-48); ABG PH 7.352 (7.35-7.45); ABG PO2 85.3 MM HG (80-95); ABG TCO2 18.8 MMOL/L (23-27); Allen Test Positive
[2019-01-18] MEDS: DEXTROSE 5% NACL 0.45% 1,000 ML IV SCH (19:45)
[2019-01-18] MEDS ORDERED: AMITRIPTYLINE 50 MG TABLET PO SCH (21:00)
[2019-01-18] MEDS ORDERED: ALBUTEROL 2.5 MG/3 ML NEB RESP TX SCH (21:00)
[2019-01-18] MEDS ORDERED: ALBUTEROL 2.5 MG/3 ML NEB RESP TX PRN (21:29)
[2019-01-18] MEDS ORDERED: ETOMIDATE 20 MG/10 ML VIAL IV ONE ×2 (21:59→22:10)
[2019-01-18] MEDS ORDERED: MIDAZOLAM 2 MG/2 ML VIAL ONE (21:59)
[2019-01-18] MEDS ORDERED: VECURONIUM 10 MG VIAL IV ONE ×2 (21:59→22:10)
[2019-01-18] MEDS ORDERED: MIDAZOLAM 2 MG/2 ML VIAL IV ONE (22:10)
[2019-01-18] MEDS ORDERED: FUROSEMIDE 40 MG/4 ML VIAL IV ONE (22:10)
[2019-01-18] MEDS ORDERED: FUROSEMIDE 40 MG/4 ML VIAL ONE (22:23)
[2019-01-18] MEDS ORDERED: PROPOFOL 1,000 MG/100 ML BOTTLE IV ONE (23:18)
[2019-01-18] MEDS: PROPOFOL 1,000 MG/100 ML BOTTLE IV SCH (23:27)
[2019-01-18] MEDS: AMITRIPTYLINE 50 MG TABLET PO SCH (23:54)
[2019-01-19 00:07] LABS: Apearance,Urine CLEAR (Clear); Bilirubin,Urine Negative (Negative); Blood, Urine Negative (Negative); Glucose,Urine (UA) Negative (Negative); Hyaline Casts,Urine 32 /LPF (0-3); Ketones,Urine Negative (Negative); Mucus,Urine Occasional /LPF (Occasional); Nitrite,Urine Negative (Negative); Protein,Urine Negative; RBC,Urine 2 /HPF (0-4); Urine Color Yellow (Yellow); Urine Specific Gravity 1.014 (1.001-1.035); Urine Urobilinogen < 2.0 EU/DL (0.2-1.0); WBC,Urine <1 /HPF (0-6)
[2019-01-19] MEDS: ALBUTEROL/IPRATROPIUM 3 ML NEB RESP TX SCH ×7 (00:51→19:36)
[2019-01-19] MEDS: VANCOMYCIN INJ 1,000 MG in SODIUM CHLORIDE 0.9% 250 ML IV SCH (03:17)
[2019-01-19] MEDS: MEROPENEM 1,000 MG in SODIUM CHLORIDE 0.9% 100 ML IV SCH (05:47)
[2019-01-19 06:25] LABS: Basophils % 0.2 % (0.0-0.8); Eosinophils % 0.3 % (0.00-10.9); Hemoglobin 8.3 GM/DL (14.0-18.0); Lymphocytes # 1.2 10*3/uL (1.4-4.0); Lymphocytes % 12.1 % (21.2-54.2); Mean Corpuscular HGB Conc 31.9 GM/DL (32-36); Mean Platelet Volume 10.8 FL (9.6-12.0); Monocytes % 6.4 % (1.7-12.7); Red Blood Count 2.68 MC/CUMM (3.8-5.5); Red Cell Distribution Width 17.1 % (9.3-17.3); White Blood Count 10.1 T/CUMM (4-12)
[2019-01-19 06:32] LABS: Platelet Count 96 T/CUMM (130-400)
[2019-01-19 06:38] LABS: INR 1.8; PT Patient Result 19.5 SECS
[2019-01-19 06:45] LABS: Partial Thromboplastin Time 55.5 SECS (0-40)
[2019-01-19 06:50] LABS: Band Neutrophils 41 % (0-10); Lymphocytes 4 % (20-55); Macrocytosis 1+; Platelet Estimate Decreased; Segmented Neutrophils 47 % (50-85); Total Cells Counted 100
[2019-01-19 06:51] LABS: Anisocytosis 1+; Polychromasia Slight; Smudge Cells Few
[2019-01-19 06:53] LABS: Calcium 6.6 MG/DL (8.5-10.1); Osmolality,Calculated 273.7 MOS/KG (273-304)
[2019-01-19] MEDS: NOREPINEPHRINE 8 MG in SODIUM CHLORIDE 0.9% 242 ML IV PRN ×2 (07:00→12:45)
[2019-01-19] MEDS: oxyCODONE/ACETAMINOPHEN 5-325 MG TABLET PO SCH ×3 (07:26→22:02)
[2019-01-19] MEDS: POLYETHYLENE GLYCOL POWDER 17 GM PACK PO SCH (09:08)
[2019-01-19] MEDS: PANTOPRAZOLE 40 MG TABLET PO SCH (09:08)
[2019-01-19] MEDS: FUROSEMIDE 40 MG/4 ML VIAL IV SCH ×2 (09:08→16:00)
[2019-01-19] MEDS: METOPROLOL SUCCINATE XL 25 MG TABLET PO SCH (09:09)
[2019-01-19 10:30] LABS: Hematocrit 25.4 VOL% (42.0-52.0); Hemoglobin 8.3 GM/DL (14.0-18.0)
[2019-01-19] MEDS: ALBUMIN 25% 50 GM in PREMIX 1 EACH IV SCH ×3 (11:12→17:17)
[2019-01-19] MEDS: cefTAZidime 2,000 MG in SYRINGE 1 EACH IV SCH ×2 (11:23→20:42)
[2019-01-19] MEDS: PROPOFOL 1,000 MG/100 ML BOTTLE IV SCH (12:01)
[2019-01-19] MEDS: DEXTROSE 5% NACL 0.45% 1,000 ML IV SCH (13:21)
[2019-01-19] MEDS ORDERED: MAGNESIUM SULF RIDER 4 GM in PREMIX 1 EACH IV PRN (14:06)
[2019-01-19] MEDS ORDERED: POTASSIUM CHLORIDE RIDER 10 MEQ in PREMIX 1 EACH IV PRN (14:06)
[2019-01-19] MEDS ORDERED: FUROSEMIDE 40 MG/4 ML VIAL IV ONE (15:00)
[2019-01-19 17:25] LABS: Calcium 7.1 MG/DL (8.5-10.1); Osmolality,Calculated 284.8 MOS/KG (273-304)
[2019-01-19 17:51] LABS: Hematocrit 21.3 VOL% (42.0-52.0); Hemoglobin 6.9 GM/DL (14.0-18.0)
[2019-01-19] MEDS: MAGNESIUM SULF RIDER 2 GM in PREMIX 1 EACH IV PRN (18:06)
[2019-01-19] MEDS: FAMOTIDINE 20 MG/2 ML VIAL IV SCH (20:43)
[2019-01-19] MEDS: MORPHINE 4 MG/1 ML VIAL IV PRN (20:43)
[2019-01-19] MEDS: DEXTROSE 10% 250 ML IV PRN (21:24)
[2019-01-20] MEDS: NOREPINEPHRINE 8 MG in SODIUM CHLORIDE 0.9% 242 ML IV PRN ×2 (00:45→21:32)
[2019-01-20] MEDS: DEXTROSE 5% NACL 0.45% 1,000 ML IV SCH ×2 (00:45→09:31)
[2019-01-20] MEDS: cefTAZidime 2,000 MG in SYRINGE 1 EACH IV SCH ×3 (03:17→20:24)
[2019-01-20] MEDS: ALBUTEROL/IPRATROPIUM 3 ML NEB RESP TX SCH ×5 (04:20→19:42)
[2019-01-20 04:58] LABS: ABG Base Excess 1.9 MMOL/L (-2.5-2.5); ABG HCO3 26.2 MMOL/L (20-26); ABG Oxygen Saturation 99.6 % (95-100); ABG PCO2 42.4 MM HG (35-48); ABG PH 7.408 (7.35-7.45); ABG TCO2 25.2 MMOL/L (23-27)
[2019-01-20 05:11] LABS: Eosinophils # 0.2 10*3/uL (0.0-0.87); Eosinophils % 3.2 % (0.00-10.9); Hemoglobin 6.9 GM/DL (14.0-18.0); Immature Granulocytes Absolute 0.05 #; Lymphocytes # 0.8 10*3/uL (1.4-4.0); Lymphocytes % 15.4 % (21.2-54.2); Mean Corpuscular HGB Conc 32.9 GM/DL (32-36); Mean Corpuscular Volume 93.3 FL (87-102); Mean Platelet Volume 10.7 FL (9.6-12.0); Monocytes % 6.3 % (1.7-12.7); Neutrophils % 74.1 % (38.7-73.9); Platelet Count 49 T/CUMM (130-400); Red Blood Count 2.25 MC/CUMM (3.8-5.5); Red Cell Distribution Width 16.6 % (9.3-17.3); White Blood Count 5.1 T/CUMM (4-12)
[2019-01-20 05:28] LABS: Albumin 3.1 G/DL (3.4-5.0); Bilirubin,Total 1.6 MG/DL (0.2-1.0); Calcium 7.1 MG/DL (8.5-10.1); Osmolality,Calculated 285.7 MOS/KG (273-304); Total Protein 4.5 G/DL (6.4-8.3)
[2019-01-20] MEDS: PROPOFOL 1,000 MG/100 ML BOTTLE IV SCH ×3 (05:35→18:00)
[2019-01-20 05:38] LABS: PT Patient Result 21.4 SECS; Partial Thromboplastin Time 65.7 SECS (0-40)
[2019-01-20] MEDS: oxyCODONE/ACETAMINOPHEN 5-325 MG TABLET PO SCH ×3 (05:45→21:23)
[2019-01-20 05:46] LABS: Band Neutrophils 2 % (0-10); Eosinophils 3 % (0-10); Lymphocytes 13 % (20-55); Segmented Neutrophils 79 % (50-85)
[2019-01-20 05:48] LABS: Hypochromasia 1+; Platelet Estimate Decreased; Polychromasia Few; Reactive Lymphocytes Few; Smudge Cells Few; Target Cells 1+
[2019-01-20 05:50] LABS: Total Cells Counted 100
[2019-01-20] MEDS ORDERED: SODIUM CHLORIDE 0.9% 1,000 ML IV PRN (08:33)
[2019-01-20] MEDS: FUROSEMIDE 40 MG/4 ML VIAL IV SCH ×2 (09:17→16:41)
[2019-01-20] MEDS: FAMOTIDINE 20 MG/2 ML VIAL IV SCH ×2 (09:17→20:25)
[2019-01-20] MEDS: DEXTROSE 10% 250 ML IV PRN ×3 (09:31→16:41)
[2019-01-20] MEDS: POTASSIUM CHLORIDE RIDER 20 MEQ in PREMIX 1 EACH IV PRN ×4 (10:30→23:28)
[2019-01-20] MEDS ORDERED: POTASSIUM CHLORIDE RIDER 100 ML IV ONE ×2 (10:32→10:34)
[2019-01-20] MEDS: MORPHINE 4 MG/1 ML VIAL IV PRN (20:46)
[2019-01-21] MEDS: ALBUTEROL/IPRATROPIUM 3 ML NEB RESP TX SCH ×6 (00:02→19:27)
[2019-01-21] MEDS: DEXTROSE 5% NACL 0.45% 1,000 ML IV SCH ×3 (00:15→22:00)
[2019-01-21] MEDS: PROPOFOL 1,000 MG/100 ML BOTTLE IV SCH ×4 (00:50→20:50)
[2019-01-21] MEDS: MORPHINE 4 MG/1 ML VIAL IV PRN (04:02)
[2019-01-21] MEDS: cefTAZidime 2,000 MG in SYRINGE 1 EACH IV SCH ×3 (04:04→18:36)
[2019-01-21 04:31] LABS: ABG Base Excess 2.4 MMOL/L (-2.5-2.5); ABG HCO3 27.2 MMOL/L (20-26); ABG Oxygen Saturation 98.8 % (95-100); ABG PCO2 43.3 MM HG (35-48); ABG PH 7.416 (7.35-7.45); ABG PO2 229.1 MM HG (80-95); ABG TCO2 28.5 MMOL/L (23-27)
[2019-01-21 04:41] LABS: Basophils % 0.1 % (0.0-0.8); Eosinophils # 0.3 10*3/uL (0.0-0.87); Hematocrit 28.5 VOL% (42.0-52.0); Hemoglobin 9.5 GM/DL (14.0-18.0); Immature Granulocytes % 0.5 %; Immature Granulocytes Absolute 0.04 #; Lymphocytes # 1.3 10*3/uL (1.4-4.0); Lymphocytes % 16.6 % (21.2-54.2); Mean Corpuscular HGB Conc 33.3 GM/DL (32-36); Mean Corpuscular Volume 93.8 FL (87-102); Mean Platelet Volume 10.9 FL (9.6-12.0); Neutrophils % 73.8 % (38.7-73.9); Red Blood Count 3.04 MC/CUMM (3.8-5.5); Red Cell Distribution Width 15.9 % (9.3-17.3); White Blood Count 7.6 T/CUMM (4-12)
[2019-01-21 04:46] LABS: INR 2.2
[2019-01-21 04:47] LABS: Platelet Count 40 T/CUMM (130-400)
[2019-01-21 04:50] LABS: PT Patient Result 23.4 SECS
[2019-01-21 05:07] LABS: Calcium 6.9 MG/DL (8.5-10.1); Osmolality,Calculated 285.7 MOS/KG (273-304)
[2019-01-21] MEDS: oxyCODONE/ACETAMINOPHEN 5-325 MG TABLET PO SCH ×3 (05:09→22:04)
[2019-01-21 05:18] LABS: Band Neutrophils 2 % (0-10); Eosinophils 3 % (0-10); Lymphocytes 13 % (20-55); Platelet Estimate Decreased; Segmented Neutrophils 80 % (50-85); Total Cells Counted 100
[2019-01-21 05:19] LABS: Polychromasia Few; Target Cells Few
[2019-01-21] MEDS: MAGNESIUM SULF RIDER 2 GM in PREMIX 1 EACH IV PRN (07:19)
[2019-01-21] MEDS: POTASSIUM CHLORIDE RIDER 20 MEQ in PREMIX 1 EACH IV PRN (07:20)
[2019-01-21] MEDS: FUROSEMIDE 40 MG/4 ML VIAL IV SCH ×2 (10:03→17:14)
[2019-01-21] MEDS: FAMOTIDINE 20 MG/2 ML VIAL IV SCH ×2 (10:03→22:05)
[2019-01-21] MEDS ORDERED: GLUCAGON 1 MG VIAL IM PRN (10:56)
[2019-01-21] MEDS: fentaNYL INJ 1,250 MCG in SODIUM CHLORIDE 0.9% 225 ML IV PRN ×2 (13:12→21:50)
[2019-01-21] MEDS: methylPREDNISolone SOD SUC 40 MG/1 ML VIAL IV SCH (17:14)
[2019-01-21 20:08] LABS: ABG Base Excess 1.9 MMOL/L (-2.5-2.5); ABG HCO3 27.8 MMOL/L (20-26); ABG Oxygen Saturation 93.3 % (95-100); ABG PCO2 49.4 MM HG (35-48); ABG PH 7.368 (7.35-7.45); ABG PO2 75.9 MM HG (80-95); ABG TCO2 29.3 MMOL/L (23-27)
[2019-01-22] MEDS: ALBUTEROL/IPRATROPIUM 3 ML NEB RESP TX SCH ×4 (00:36→11:15)
[2019-01-22] MEDS: methylPREDNISolone SOD SUC 40 MG/1 ML VIAL IV SCH ×2 (01:15→09:34)
[2019-01-22] MEDS: DEXTROSE 5% NACL 0.45% 1,000 ML IV SCH (01:42)
[2019-01-22] MEDS: PROPOFOL 1,000 MG/100 ML BOTTLE IV SCH (03:35)
[2019-01-22] MEDS: cefTAZidime 2,000 MG in SYRINGE 1 EACH IV SCH ×2 (03:55→11:44)
[2019-01-22 04:44] LABS: ABG Base Excess -0.3 MMOL/L (-2.5-2.5); ABG HCO3 24.7 MMOL/L (20-26); ABG PCO2 41.6 MM HG (35-48); ABG PH 7.391 (7.35-7.45)
[2019-01-22 04:45] LABS: ABG Oxygen Saturation 99.6 % (95-100)
[2019-01-22 04:51] LABS: Hematocrit 29.5 VOL% (42.0-52.0); Hemoglobin 9.9 GM/DL (14.0-18.0); Immature Granulocytes % 0.8 %; Immature Granulocytes Absolute 0.03 #; Lymphocytes # 0.3 10*3/uL (1.4-4.0); Lymphocytes % 8.4 % (21.2-54.2); Mean Corpuscular HGB Conc 33.6 GM/DL (32-36); Mean Corpuscular Volume 94.6 FL (87-102); Mean Platelet Volume 12.3 FL (9.6-12.0); Monocytes % 5.9 % (1.7-12.7); Neutrophils % 84.9 % (38.7-73.9); Red Blood Count 3.12 MC/CUMM (3.8-5.5); Red Cell Distribution Width 16.1 % (9.3-17.3); White Blood Count 3.7 T/CUMM (4-12)
[2019-01-22 04:56] LABS: Platelet Count 17 T/CUMM (130-400)
[2019-01-22 04:58] LABS: INR 2.2
[2019-01-22 05:10] LABS: PT Patient Result 23.9 SECS
[2019-01-22 05:15] LABS: Hypochromasia 1+; Platelet Estimate Decreased
[2019-01-22] MEDS ORDERED: SODIUM CHLORIDE 0.9% 1,000 ML IV PRN (05:16)
[2019-01-22 05:25] LABS: Blood Urea Nitrogen 9 MG/DL (7-18); Calcium 7.1 MG/DL (8.5-10.1); Glucose 163 MG/DL (74-106); Osmolality,Calculated 288.8 MOS/KG (273-304); Prealbumin < 3.0 MG/DL (20-40)
[2019-01-22] MEDS ORDERED: PHENYLEPHRINE DRIP 40 MG/250 ML PREMIX IV ONE (05:49)
[2019-01-22] MEDS ORDERED: PHENYLEPHRINE DRIP 40 MG/250 ML PREMIX IV PRN (06:00)
[2019-01-22] MEDS: oxyCODONE/ACETAMINOPHEN 5-325 MG TABLET PO SCH ×3 (06:33→21:55)
[2019-01-22] MEDS: fentaNYL INJ 1,250 MCG in SODIUM CHLORIDE 0.9% 225 ML IV PRN ×2 (09:22→18:52)
[2019-01-22] MEDS: FUROSEMIDE 40 MG/4 ML VIAL IV SCH (09:33)
[2019-01-22] MEDS: FAMOTIDINE 20 MG/2 ML VIAL IV SCH (09:34)
[2019-01-23] MEDS: fentaNYL INJ 1,250 MCG in SODIUM CHLORIDE 0.9% 225 ML IV PRN ×2 (00:36→07:05)
[2019-01-23] MEDS: oxyCODONE/ACETAMINOPHEN 5-325 MG TABLET PO SCH ×2 (05:31→14:29)
[2019-01-23] MEDS ORDERED: LORazepam 2 MG/1 ML VIAL IV PRN (09:52)
[2019-01-23] MEDS ORDERED: HYDROmorphone PCA 30 MG/30 ML SYRINGE IV SCH (10:00)
[2019-01-23 12:22] VITALS: BP 103/55
== END 2019-01-23 14:55 | disposition expired | DRG 248 ==
LOC: N.EDINP 15:16 → N.ED 15:16 → SUATTDRO 19:52 → N.TELEN 22:04 → SUATTDRO 01-18 09:23 → N.CC 01-18 09:31
PROVIDERS: ADMIT Internal Medicine; ATTEND Internal Medicine